=== PATIENT | female | born 1950 | race Caucasian/White ===

== ENCOUNTER → 2017-08-24 07:10 | Outpatient (CLI) | payer OTHER, SELFPAY ==
--- NOTE | 2017-08-24 | DI.MRI.S_ITS ---
PROCEDURE: MR KNEE LT WO CON INDICATIONS: INTERNAL DERANGEMENT OF LEFT KNEE TECHNIQUE: Noncontrast sagittal PD fast spin echo and T2 fast spin echo with fat saturation, sagittal 3-D FLASH with fat saturation; coronal T1 spin echo and PD fast spin echo with fat saturation, and axial PD fast spin echo with fat saturation through the knee. COMPARISON: [facility], , KNEE 3V LEFT, 04/13/2017, 12:09. FINDINGS: Image quality: Excellent. Menisci: There is radial tear in the posterior horn of the medial meniscus. Horizontal tear involving the body and posterior horn, as well as fraying of the free edge of the medial meniscus. The lateral meniscus appears normal morphology and internal signal. The meniscal root ligaments appear intact. Cruciate ligaments: There is likely chronic partial tear/scarring of the anterior cruciate ligament which is thickened and demonstrates increased signal. The posterior cruciate ligament appear intact. Medial structures: There is a grade 3 sprain of the medial collateral ligament Visualized portions of the pes anserinus tendons appear normal. Trace pes anserinus bursal fluid. Lateral structures: The lateral collateral ligament, long and short heads of the biceps femoris tendon appear intact. The popliteus tendon appears normal; the popliteofibular ligament appears intact. The posterosuperior and anteroinferior popliteomeniscal fascicles appear intact. The arcuate and fabellofibular ligaments appear intact, on either side of the lateral inferior geniculate artery. Iliotibial band appears normal. Anterior structures: The quadriceps and patellar tendons appear intact. Patellar alignment is normal. No femoral trochlear dysplasia or ventral trochlear prominence. No edema in the infrapatellar fat pad. Bones and cartilage: No fractures. There is bone marrow edema in the medial femoral condyle consistent with contusion. There is cortical irregularity and subochondral edema with associated subchondral sclerosis in the medial femoral condyle, suggesting sequelae of chronic injury. There is cartilage thinning and fibrillation of the medial and lateral femorotibial compartments. Joint space: There is large knee joint effusion. Small Garcia's cyst. Normal appearing synovial plicae are incidentally noted. IMPRESSION: 1. A radial tear of the posterior horn medial meniscus. 2. Horizontal tear of the body and posterior horn with associated fraying of the free edge of the medial meniscus. 3. Suspect chronic partial tear/scar of the anterior cruciate ligament. 4. Great 3 sprain of the medial collateral ligament. 5. Large knee joint effusion. 6. Trace pes anserinus bursal fluid suggesting mild bursitis. 7. Small Garcia's cyst. 8. Cartilage thinning and fibrillation in the medial femorotibial compartment. There is cortical irregularity and subochondral edema with associated subchondral sclerosis in the medial femoral condyle, suggesting sequelae of chronic injury. Dictated by: Yared Cohen M.D. on 08/24/2017 at 8:57 Approved by: Yared Cohen M.D. on 08/24/2017 at 10:49
== END ==
PROVIDERS: Family Provider Physician Assistant; PCP Physician Assistant; Visit Provider Orthopaedic Surgery
DX: S83.242A Other tear of medial meniscus, current injury, left knee, initial encounter (principal); M71.22 Synovial cyst of popliteal space [Baker], left knee; M70.52 Other bursitis of knee, left knee; M25.462 Effusion, left knee; S83.412A Sprain of medial collateral ligament of left knee, initial encounter
CPT/HCPCS: 73721

== ENCOUNTER → 2017-09-08 09:22 | Outpatient (CLI) | payer OTHER, SELFPAY | PROVIDERS: Family Provider Physician Assistant; PCP Physician Assistant; Visit Provider Physician Assistant | DX: M85.852 Other specified disorders of bone density and structure, left thigh (principal); E28.39 Other primary ovarian failure; Z78.0 Asymptomatic menopausal state; Z87.891 Personal history of nicotine dependence | CPT/HCPCS: 77080 ==

== ENCOUNTER → 2017-12-07 11:27 | Outpatient (CLI) | payer OTHER, SELFPAY ==
--- NOTE | 2017-12-07 | DI.MG.S_ITS ---
BILATERAL DIGITAL SCREENING MAMMOGRAM 3D/2D WITH CAD: 12/07/2017 CLINICAL: Routine screening. Comparison is made to exams dated: 11/18/2016 mammogram, 09/24/2015 mammogram, and 08/19/2014 mammogram - [facility]. There are scattered fibroglandular elements in both breasts. Current study was also evaluated with a Computer Aided Detection (CAD) system. There are post operative findings in both breasts. No significant masses, calcifications, or other findings are seen in either breast. There has been no significant interval change. IMPRESSION: NEGATIVE There is no mammographic evidence of malignancy. A 1 year screening mammogram is recommended. This exam was interpreted at Station ID: [id number]. NOTE: For mammograms, a report in lay terms will be sent to the patient. Approximately 15% of breast malignancies will not be visualized mammographically. In the management of a palpable breast mass, a negative mammogram must not discourage biopsy of a clinically suspicious lesion. Electronically Signed By: Allen grewal/kan:12/07/2017 12:00:33 letter sent: Normal Exam ACR BI-RADS Category 1: Negative 3341F
== END ==
PROVIDERS: Family Provider Physician Assistant; PCP Physician Assistant; Visit Provider Physician Assistant
DX: Z12.31 Encounter for screening mammogram for malignant neoplasm of breast (principal)
CPT/HCPCS: 77063; 77067

== ENCOUNTER → 2018-07-17 07:49 | Outpatient (CLI) | payer OTHER, SELFPAY ==
[2018-07-17 10:07] LABS: Alanine Aminotransferase 45 IU/L (9-52); Albumin 4.8 g/dL (3.5-5.0); Albumin Globulin Ratio 1.5 (1.0-2.8); Alkaline Phosphatase 84 U/L (38-126); Aspartate Aminotransferase 40 IU/L (14-36); BUN Creatinine Ratio 22.9 (6-22); Bilirubin Total 0.7 mg/dL (0.2-1.3); Blood Urea Nitrogen 16 mg/dL (7-17); Calcium 9.8 mg/dL (8.4-10.2); Carbon Dioxide 26 mmol/L (22-32); Chloride 100 mmol/L (98-107); Estimated Glomerular Filt Rate > 60.0 mL/min (>60); Globulin 3.3 g/dL (1.7-4.1); Glucose 116 mg/dL (80-110); HEMOLYSIS < 15 (0-50); Sodium 137 mmol/L (137-145); Total Protein 8.1 g/dL (6.3-8.2)
[2018-07-17 10:56] LABS: Thyroid Stimulating Hormone 1.45 uIU/mL (0.47-4.68)
[2018-07-17 13:36] LABS: Creatinine Urine Random 81.9 mg/dL
[2018-07-17 13:56] LABS: Microalbumi Creatinin Ratio Ur 7.3 ug/mg CR (<30); Microalbumin Urine Random < 0.6 mg/dL (0-1.6)
== END ==
PROVIDERS: Family Provider Physician Assistant; PCP Physician Assistant; Visit Provider Physician Assistant
DX: I10 Essential (primary) hypertension (principal); R00.0 Tachycardia, unspecified; R00.2 Palpitations
CPT/HCPCS: 36415; 80053; 82043; 82570; 84443

== ENCOUNTER → 2018-07-26 09:11 | Outpatient (CLI) | payer OTHER, SELFPAY ==
--- NOTE | 2018-08-17 16:14 | PM.CARDMON.1 ---
Operations Executive Report Referral & Results Date Patient Seen: 07/26/18 Requesting provider: Brooke Orantes Indication: Palpitations Duration of monitoring (days): 14 Diary information: There is 7 patient diary entries associated with sinus rhythm and PVCs There are 17 patient triggered events associated with sinus rhythm, SVT/atrial tachycardia, ventricular trigeminy, PVCs, and PACs Data: Minimum heart rate was 45 beats per minute at 05:52 on 07/28/2018 Maximum sinus heart rate was 121 beats per minute at 11:20 on 07/31/2018 Maximum overall heart rate was 226 beats per minute at 09:17 on 07/30/2018 during a 14 beat run of SVT Less than 1% of identified beats rather ventricular supraventricular in origin Patient had a 2nd run of ventricular bigeminy and a 12nd run of ventricular trigeminy 39 runs of supraventricular tachycardia/atrial tachycardia were identified with an average heart rate of 127 beats per minute the longest lasted 15.1 seconds Impression: Patient with multiple minor dysrhythmias as above. Difficult to correlate patient's symptoms as multiple different things were present within 45 seconds of patient triggering the device. More likely than not patient's symptoms are due to PVCs given that the seem to be correlated with her diary entries Clinical correlation suggested however.
== END ==
PROVIDERS: Family Provider Physician Assistant; PCP Physician Assistant; Visit Provider Physician Assistant
DX: R00.2 Palpitations (principal)
CPT/HCPCS: 0296T; 0298T

== ENCOUNTER → 2018-12-11 09:23 | Outpatient (CLI) | payer OTHER, SELFPAY ==
--- NOTE | 2018-12-11 | DI.MG.S_ITS ---
BILATERAL DIGITAL SCREENING MAMMOGRAM 3D/2D WITH CAD: 12/11/2018 CLINICAL: Routine screening. Comparison is made to exams dated: 12/07/2017 mammogram, 11/18/2016 mammogram, and 09/24/2015 mammogram - [facility]. There are scattered fibroglandular elements in both breasts. Current study was also evaluated with a Computer Aided Detection (CAD) system. There are benign post operative findings in both breasts. No significant masses, calcifications, or other findings are seen in either breast. There has been no significant interval change. IMPRESSION: There is no mammographic evidence of malignancy. A 1 year screening mammogram is recommended. This exam was interpreted at Station ID: [id number]. NOTE: For mammograms, a report in lay terms will be sent to the patient. Approximately 15% of breast malignancies will not be visualized mammographically. In the management of a palpable breast mass, a negative mammogram must not discourage biopsy of a clinically suspicious lesion. Electronically Signed By: Bola orourke/kan:12/11/2018 15:27:12 letter sent: Normal Exam ACR BI-RADS Category 2: Benign Finding(s) 3342F
== END ==
PROVIDERS: PCP Physician Assistant; Visit Provider Physician Assistant
DX: Z12.31 Encounter for screening mammogram for malignant neoplasm of breast (principal)
CPT/HCPCS: 77063; 77067

== ENCOUNTER → 2019-12-13 11:45 | Outpatient (CLI) | payer OTHER, SELFPAY ==
--- NOTE | 2019-12-13 11:59 | DI.MG.S_ITS ---
Patient Name: ABHAY ELIZABETH date: 1950 Sex: F Attending Physician: Bertin Indications: Date: 12/13/2019 11:56 At the request of: DENIS DESIR Procedure: MM screening mammo BI BILATERAL DIGITAL SCREENING MAMMOGRAM 3D/2D WITH CAD: 12/13/2019 CLINICAL: Routine screening. Comparison is made to exams dated: 12/11/2018 mammogram, 12/07/2017 mammogram, and 11/18/2016 mammogram - [facility]. The tissue of both breasts is predominantly fatty. Current study was also evaluated with a Computer Aided Detection (CAD) system. No significant masses, calcifications, or other findings are seen in either breast. There has been no significant interval change. IMPRESSION: NEGATIVE There is no mammographic evidence of malignancy. A 1 year screening mammogram is recommended. This exam was interpreted at Station ID: [id number]. NOTE: For mammograms, a report in lay terms will be sent to the patient. Approximately 15% of breast malignancies will not be visualized mammographically. In the management of a palpable breast mass, a negative mammogram must not discourage biopsy of a clinically suspicious lesion. Electronically Signed By: Drake mancini/kan:12/13/2019 12:47:01 letter sent: Normal Exam ACR BI-RADS Category 1: Negative 3341F
== END ==
PROVIDERS: PCP Nurse Practitioner; Referring Provider Nurse Practitioner; Visit Provider Nurse Practitioner
DX: Z12.31 Encounter for screening mammogram for malignant neoplasm of breast (principal)
CPT/HCPCS: 77063; 77067

== ENCOUNTER → 2020-01-13 07:09 | Outpatient (CLI) | payer OTHER, SELFPAY ==
[2020-01-13 08:29] LABS: BUN Creatinine Ratio 28.4 (6-22); Blood Urea Nitrogen 19 mg/dL (7-17); Calcium 9.5 mg/dL (8.4-10.2); Carbon Dioxide 29 mmol/L (22-32); Chloride 99 mmol/L (98-107); Cholesterol 173 mg/dL (140-199); Estimated Glomerular Filt Rate > 60.0 mL/min (>60); Glucose 127 mg/dL (80-110); HDL Cholesterol 43 mg/dL (40-60); HEMOLYSIS < 15 (0-50); LDL Cholesterol Calculated 104 mg/dL (<100); Potassium 4.1 mmol/L (3.4-5.1); Sodium 138 mmol/L (137-145); Triglycerides 131 mg/dL (35-150)
[2020-01-13 08:45] LABS: Free T3, Triiodothyronine Free 3.09 pg/mL (2.77-5.27); Free T4, Direct Thyroxine 1.11 ng/dL (0.78-2.19)
[2020-01-13 08:58] LABS: Thyroid Stimulating Hormone 2.29 uIU/mL (0.47-4.68)
[2020-01-13 10:25] LABS: Creatinine Urine Random 142.1 mg/dL
[2020-01-13 10:29] LABS: Microalbumi Creatinin Ratio Ur 9.1 ug/mg CR (<30); Microalbumin Urine Random 1.3 mg/dL (0-1.6)
== END ==
PROVIDERS: PCP Nurse Practitioner; Referring Provider Nurse Practitioner; Visit Provider Nurse Practitioner
DX: E66.9 Obesity, unspecified (principal); E78.5 Hyperlipidemia, unspecified; I10 Essential (primary) hypertension; R00.2 Palpitations; Z79.899 Other long term (current) drug therapy
CPT/HCPCS: 36415; 80048; 80061; 82043; 82570; 84439; 84443; 84481

== ENCOUNTER → 2020-01-14 13:28 | Outpatient (CLI) | payer OTHER, SELFPAY | PROVIDERS: PCP Nurse Practitioner; Referring Provider Nurse Practitioner; Visit Provider Nurse Practitioner | DX: M85.851 Other specified disorders of bone density and structure, right thigh (principal); Z78.0 Asymptomatic menopausal state; Z87.891 Personal history of nicotine dependence | CPT/HCPCS: 77080 ==

== ENCOUNTER → 2020-04-30 13:09 | Outpatient (CLI) | payer MEDICARE, SELFPAY ==
[2020-04-30] MEDS: COVID-19 VACC #1, MRNA(MOD) 100 MCG/0.5 ML VIAL IM (13:14)
== END ==
PROVIDERS: PCP Nurse Practitioner; Visit Provider Internal Medicine
DX: Z23 Encounter for immunization (principal)
CPT/HCPCS: 0011A; 91301

== ENCOUNTER → 2020-05-28 12:54 | Outpatient (CLI) | payer MEDICARE, SELFPAY ==
[2020-05-28] MEDS: COVID-19 VACC #2, MRNA(MOD) 100 MCG/0.5 ML VIAL IM (13:05)
== END ==
PROVIDERS: PCP Nurse Practitioner; Visit Provider Internal Medicine
DX: Z23 Encounter for immunization (principal)
CPT/HCPCS: 0012A; 91301

== ENCOUNTER 2020-09-21 13:10 | Outpatient (RCR) | payer OTHER, SELFPAY ==
--- NOTE | 2020-09-21 15:20 | PT.OIE ---
Current Diagnoses Pain in left knee (09/21/20) Dyspnea, unspecified (09/21/20) Past Medical History (Last Updated 09/09/20 @ 11:50 by SHANE Luis) Arthritis (Unknown) Elevated fasting glucose Hyperlipidemia Hypertension (Unknown) Osteopenia (~2014) Past Surgical History (Last Reviewed 09/09/20 @ 11:41 by SHANE Luis) Hx of bilateral breast reduction surgery (12/2015) Visit Care Team Role Provider Type SHANE Luis Attending Provider Advanced Deckhand [employer] Primary Care Provider Referring Provider Specialty: Family Practice Address: [address] [place] [address], [facility] Email: [email or web address] Physical Therapy Initial Evaluation PT-OP-A Visit Information Start: 09/21/20 14:43 Freq: Status: Active Protocol: Document 09/21/20 13:45 DCW (Rec: 09/21/20 15:20 DCW [id number]) Out-Patient Physical Therapy Visit Information Visit Information Visit Type Initial Evaluation Visit Start Time 13:45 Visit Stop Time 14:25 Total Visit Minutes 40 Visit Number 0 Number of SPAGHETTI PRESS HELPER Visits 1 Evaluation Information Evaluation Date 09/21/20 PT-OP-B Current Condition Start: 09/21/20 14:43 Freq: Status: Active Protocol: Document 09/21/20 13:45 DCW (Rec: 09/21/20 15:20 DCW [id number]) Current Condition History of Current Condition Onset Date 2+ years Current Complaints Knee pain with activity History of Current Condition Pt is a 70 year old female ~ two years s/p surgical left meniscus repair. Pt reports that following the surgery, she was told they found a lot of arthritis, and she has had fairly constant pain ever since then. Pt reports she has had some increased weight gain, and has been trying to work on getting rid of it, however her knee pain limits her activity level. Notes she is able to participate in [employer] classes 3x/ week, but wants to get out and walk more, which is a difficult activity for her. Pt is able to tolerate walking around large stores like [employer] or [employer], but any more than that, and she has to stop due to the pain. Pt is also concerned about her $40 copay, and would prefer to just attend 2-3 more sessions, and then transition to an independent home exercise program. Treatment Goals Patient/Caregiver Goals Pt's goal is to strengthen her knee to decrease pain. PT-OP-C Subjective Start: 09/21/20 14:43 Freq: Status: Active Protocol: Document 09/21/20 13:45 DCW (Rec: 09/21/20 15:20 DCW [id number]) OP-PT Subjective Patient Comments Patient Comments I want to walk to lose weight , which would help my knee feel better, but my knee hurts , so I can't get out and walk. Patient Questionnaires Lower Extremity Functional Scale LEFS Score 21.25% LEFS Impairment 60 to 79% Impaired (Score 17- 31) OP-PT Pain Assessment Pain Assessment Grid Paper Pain Assessment Grid Completed Yes Location Left Medial Knee Intensity 6 Scale Used Numeric (0 - 10) Description Aching Description- Other Catching PT-OP-E Functional Tests Start: 09/21/20 14:43 Freq: Status: Active Protocol: Document 09/21/20 13:45 DCW (Rec: 09/21/20 15:20 DCW [id number]) Functional Tests 6 Minute Walk Test Distance 1199' Device Used none Comments 3.33 ft/sec 30 Second Sit to Stand Test Score x11 PT-OP-F Manual Assessment Start: 09/21/20 14:43 Freq: Status: Active Protocol: Document 09/21/20 13:45 DCW (Rec: 09/21/20 15:20 DCW [id number]) Manual Assessments Soft Tissue Assessment Soft Tissue Mobility Assessment Mild complaint of pain with palpation along medial left knee. PT-OP-K Range of Motion Start: 09/21/20 14:43 Freq: Status: Active Protocol: Document 09/21/20 13:45 DCW (Rec: 09/21/20 15:20 DCW [id number]) Knee Goniometric Range of Motion Knee Right Knee ROM WFL Yes Patient Position Supine Flexion Active (degrees) 120 Extension Active (degrees) 0 Left Knee ROM WFL Yes Patient Position Supine Flexion Active (degrees) 118 Extension Active (degrees) 0 PT-OP-M Strength Start: 09/21/20 14:43 Freq: Status: Active Protocol: Document 09/21/20 13:45 DCW (Rec: 09/21/20 15:20 DCW [id number]) Hip Strength Hip Manual Muscle Testing Right Flexion (L2) 4+ Good+ Abduction 4+ Good+ Adduction 4 Good External Rotation 4+ Good+ Internal Rotation 4+ Good+ Left Flexion (L2) 4 Good Abduction 4+ Good+ Adduction 4 Good External Rotation 4+ Good+ Internal Rotation 4+ Good+ Knee Strength Knee Manual Muscle Testing Right Flexion (S2) 4+ Good+ Extension (L3) 4+ Good+ Left Flexion (S2) 4 Good Extension (L3) 4 Good PT-OP-T Assessment and Plan Start: 09/21/20 14:43 Freq: Status: Active Protocol: Document 09/21/20 13:45 DCW (Rec: 09/21/20 15:20 DCW [id number]) Physical Therapy Assessment Rehab Potential Rehabilitation Potential Good Evaluation Complexity Number of Personal Factors/Comorbidities 0 Number of Body Systems Impaired 1-2 Clinical Presentation at Evaluation Stable Impairments Impairments Activity Tolerance,Functional Activities,Pain,Strength Goals Two Impairment Pt scores 11 on the 30 second sit to stand test Short Term Goal (STG) Per Jose and Jack (2013), females in the 70-74 age group should score at least 14 on 30 second sit to stand test to show ability to maintain physical independence. Pt should demonstrate ability to to score at least 14 during testing. STG Duration 10/21/20 One Impairment Pt does not have an appropriate home exercise program Short Term Goal (STG) Pt to be independent and compliant with an appropriate HEP STG Duration 10/21/20 Assessment Summary Assessment Pt presents to skilled therapy with signs and symptoms consistent with left knee osteoarthritis, medial>lateral . Pt does show strength and ROM largely WNL, although does have some minor weakness (4/5 ) with flexion and extension of left knee. Pt will require instruction in an independent home exercise program in order to improve mobility and increase tolerance to activity . Pt concerned with her copay, and would prefer to only attend 2-3 sessions in order to obtain HEP and then progress to independence. Physical Therapy Plan Frequency and Duration Frequency of Treatment 1-2x/week Duration of Treatment One month Plan of Care Start Date 09/21/20 Plan of Care End Date 10/21/20 Therapeutic Interventions Therapeutic Interventions Balance Training,Home Exercise Program,Joint Mobilizations, Manual Therapy,Neuromuscular Re-education,Patient/Caregiver Education,Self-Care/Home Management,Therapeutic Activities,Therapeutic Exercises Next Visit Focus/Plan Next Note Type Treatment Note Next Visit Plan Strengthening, mobility HEP
--- NOTE | 2020-09-21 15:20 | PT.OPPOC ---
Physical, Occupational & Speech Therapy At [facility] Current Diagnoses Pain in left knee (09/21/20) Dyspnea, unspecified (09/21/20) Visit Care Team Role Provider Type SHANE Luis Attending Provider Advanced Erp Engineer Primary Care Provider Referring Provider Specialty: Family Practice Address: [address] [place] [address], [facility] Email: [email or web address] Plan Of Care PT-OP-T Assessment and Plan Start: 09/21/20 14:43 Freq: Status: Active Protocol: Document 09/21/20 13:45 DCW (Rec: 09/21/20 15:20 DCW [id number]) Physical Therapy Assessment Rehab Potential Rehabilitation Potential Good Evaluation Complexity Number of Personal Factors/Comorbidities 0 Number of Body Systems Impaired 1-2 Clinical Presentation at Evaluation Stable Impairments Impairments Activity Tolerance,Functional Activities,Pain,Strength Goals Two Impairment Pt scores 11 on the 30 second sit to stand test Short Term Goal (STG) Per Jose and Jack (2013), females in the 70-74 age group should score at least 14 on 30 second sit to stand test to show ability to maintain physical independence. Pt should demonstrate ability to to score at least 14 during testing. STG Duration 10/21/20 One Impairment Pt does not have an appropriate home exercise program Short Term Goal (STG) Pt to be independent and compliant with an appropriate HEP STG Duration 10/21/20 Assessment Summary Assessment Pt presents to skilled therapy with signs and symptoms consistent with left knee osteoarthritis, medial>lateral . Pt does show strength and ROM largely WNL, although does have some minor weakness (4/5 ) with flexion and extension of left knee. Pt will require instruction in an independent home exercise program in order to improve mobility and increase tolerance to activity . Pt concerned with her copay, and would prefer to only attend 2-3 sessions in order to obtain HEP and then progress to independence. Physical Therapy Plan Frequency and Duration Frequency of Treatment 1-2x/week Duration of Treatment One month Plan of Care Start Date 09/21/20 Plan of Care End Date 10/21/20 Therapeutic Interventions Therapeutic Interventions Balance Training,Home Exercise Program,Joint Mobilizations, Manual Therapy,Neuromuscular Re-education,Patient/Caregiver Education,Self-Care/Home Management,Therapeutic Activities,Therapeutic Exercises Next Visit Focus/Plan Next Note Type Treatment Note Next Visit Plan Strengthening, mobility HEP Plan of Care Dates Plan of Care Start Date 09/21/20 Plan of Care End Date 10/21/20 Electronically Signed by: Sam Maki, PT 09/21/20 [id number] Please Sign and Return: I have reviewed this Plan of Care and certify that the skilled therapy services above are required to meet the patient?s needs. Physician Signature Date Printed Name and Credentials Clinical Instructor Signature Printed Name and Credentials
--- NOTE | 2020-11-05 13:48 | PT.OPDS ---
Current Diagnoses Pain in left knee (09/21/20) Dyspnea, unspecified (09/21/20) Visit Care Team Role Provider Type SHANE Luis Attending Provider Advanced Business Dean Primary Care Provider Referring Provider Specialty: [facility] Practice Address: [address] [place] [address], [facility] Email: [email or web address] Visit Number Visit Number 1 Discharge Summary PT-OP-B Current Condition Start: 09/21/20 14:43 Freq: Status: Active Protocol: Document 09/21/20 13:45 DCW (Rec: 09/21/20 15:20 DCW [id number]) Current Condition History of Current Condition Onset Date 2+ years Current Complaints Knee pain with activity History of Current Condition Pt is a 70 year old female ~ two years s/p surgical left meniscus repair. Pt reports that following the surgery, she was told they found a lot of arthritis, and she has had fairly constant pain ever since then. Pt reports she has had some increased weight gain, and has been trying to work on getting rid of it, however her knee pain limits her activity level. Notes she is able to participate in [employer] classes 3x/ week, but wants to get out and walk more, which is a difficult activity for her. Pt is able to tolerate walking around large stores like [employer] or [employer], but any more than that, and she has to stop due to the pain. Pt is also concerned about her $40 copay, and would prefer to just attend 2-3 more sessions, and then transition to an independent home exercise program. Treatment Goals Patient/Caregiver Goals Pt's goal is to strengthen her knee to decrease pain. PT-OP-C Subjective Start: 09/21/20 14:43 Freq: Status: Active Protocol: Document 09/21/20 13:45 DCW (Rec: 09/21/20 15:20 DCW [id number]) OP-PT Subjective Patient Comments Patient Comments I want to walk to lose weight , which would help my knee feel better, but my knee hurts , so I can't get out and walk. Patient Questionnaires Lower Extremity Functional Scale LEFS Score 21.25% LEFS Impairment 60 to 79% Impaired (Score 17- 31) OP-PT Pain Assessment Pain Assessment Grid Paper Pain Assessment Grid Completed Yes Location Left Medial Knee Intensity 6 Scale Used Numeric (0 - 10) Description Aching Description- Other Catching PT-OP-E Functional Tests Start: 09/21/20 14:43 Freq: Status: Active Protocol: Document 09/21/20 13:45 DCW (Rec: 09/21/20 15:20 DCW [id number]) Functional Tests 6 Minute Walk Test Distance 1199' Device Used none Comments 3.33 ft/sec 30 Second Sit to Stand Test Score x11 PT-OP-F Manual Assessment Start: 09/21/20 14:43 Freq: Status: Active Protocol: Document 09/21/20 13:45 DCW (Rec: 09/21/20 15:20 DCW [id number]) Manual Assessments Soft Tissue Assessment Soft Tissue Mobility Assessment Mild complaint of pain with palpation along medial left knee. PT-OP-K Range of Motion Start: 09/21/20 14:43 Freq: Status: Active Protocol: Document 09/21/20 13:45 DCW (Rec: 09/21/20 15:20 DCW [id number]) Knee Goniometric Range of Motion Knee Right Knee ROM WFL Yes Patient Position Supine Flexion Active (degrees) 120 Extension Active (degrees) 0 Left Knee ROM WFL Yes Patient Position Supine Flexion Active (degrees) 118 Extension Active (degrees) 0 PT-OP-M Strength Start: 09/21/20 14:43 Freq: Status: Active Protocol: Document 09/21/20 13:45 DCW (Rec: 09/21/20 15:20 DCW [id number]) Hip Strength Hip Manual Muscle Testing Right Flexion (L2) 4+ Good+ Abduction 4+ Good+ Adduction 4 Good External Rotation 4+ Good+ Internal Rotation 4+ Good+ Left Flexion (L2) 4 Good Abduction 4+ Good+ Adduction 4 Good External Rotation 4+ Good+ Internal Rotation 4+ Good+ Knee Strength Knee Manual Muscle Testing Right Flexion (S2) 4+ Good+ Extension (L3) 4+ Good+ Left Flexion (S2) 4 Good Extension (L3) 4 Good PT-OP-T Assessment and Plan Start: 09/21/20 14:43 Freq: Status: Active Protocol: Document 11/05/20 13:47 DCW (Rec: 11/05/20 13:48 DCW [id number]) Physical Therapy Assessment Assessment Summary Assessment Pt canceled or no-showed for four appointments following her initial evaluation. Pt has now not been seen in 45 days, will be discharged from skilled therapy at this time. Pt will require a new referral in order to return to therapy . Physical Therapy Plan Discharge Physical Therapy Discharge Reasons No Longer Attending PT Next Visit Focus/Plan Next Note Type Discharge Summary
== END 2020-11-09 09:25 | disposition home or self-care (01) ==
LOC: PHYS 13:10
PROVIDERS: PCP Nurse Practitioner; Referring Provider Nurse Practitioner; Visit Provider Nurse Practitioner
DX: M25.562 Pain in left knee (principal); R06.00 Dyspnea, unspecified
CPT/HCPCS: 97161

== ENCOUNTER → 2020-12-19 10:41 | Outpatient (CLI) | payer OTHER, SELFPAY ==
--- NOTE | 2020-12-19 10:43 | DI.MG.S_ITS ---
BILATERAL DIGITAL SCREENING MAMMOGRAM 3D/2D WITH CAD: 12/19/2020 CLINICAL: Routine screening. Comparison is made to exams dated: 12/13/2019 mammogram, 12/11/2018 mammogram, and 12/07/2017 mammogram - [facility]. The tissue of both breasts is predominantly fatty. Current study was also evaluated with a Computer Aided Detection (CAD) system. No significant masses, calcifications, or other findings are seen in either breast. There has been no significant interval change. IMPRESSION: NEGATIVE There is no mammographic evidence of malignancy. A 1 year screening mammogram is recommended. This exam was interpreted at Station ID: [id number]. NOTE: For mammograms, a report in lay terms will be sent to the patient. Approximately 15% of breast malignancies will not be visualized mammographically. In the management of a palpable breast mass, a negative mammogram must not discourage biopsy of a clinically suspicious lesion. Electronically Signed By: Nadeem Koo acr/kan:12/21/2020 08:03:09 letter sent: Normal Exam ACR BI-RADS Category 1: Negative 3341F
== END ==
PROVIDERS: PCP Nurse Practitioner; Referring Provider Nurse Practitioner; Visit Provider Nurse Practitioner
DX: Z12.31 Encounter for screening mammogram for malignant neoplasm of breast (principal)
CPT/HCPCS: 77063; 77067

== ENCOUNTER → 2020-12-25 08:26 | Outpatient (CLI) | payer OTHER, SELFPAY ==
--- NOTE | 2020-12-25 08:27 | DI.RAD.S_ITS ---
PROCEDURE: XR FOOT LT MIN 3V INDICATIONS: L lateral foot pain post tripping on cat TECHNIQUE: 3 views of the foot were acquired. COMPARISON: None. FINDINGS: Bones: Oblique shaft fracture of the shaft of the 5th metatarsal with very minimal displacement. No involvement of the articular surface. No suspicious bony lesions. Soft tissues: No tibiotalar joint effusion. Achilles tendon appears normal. IMPRESSION: Oblique shaft fracture of the 5th metatarsal. Dictated by: Toney Brand M.D. on 12/25/2020 at 9:24 Approved by: Toney Brand M.D. on 12/25/2020 at 9:25
--- NOTE | 2020-12-25 08:27 | DI.RAD.S_ITS ---
PROCEDURE: XR ANKLE LT MIN 3V INDICATIONS: L lateral malleolar pain TECHNIQUE: 3 views of the ankle were acquired. COMPARISON: None. FINDINGS: Bones: No fractures or dislocations. Ankle mortise is normally aligned. No suspicious bony lesions. Soft tissues: No tibiotalar joint effusion. Achilles tendon appears normal. IMPRESSION: No evidence acute bony abnormality of the left ankle. If clinical suspicion and/or symptoms persist, further assessment with repeat plain films, or advanced imaging (e.g., CT, MRI, or bone scan) may be helpful for further assessment. Dictated by: Toney Brand M.D. on 12/25/2020 at 9:21 Approved by: Toney Brand M.D. on 12/25/2020 at 9:23
== END ==
PROVIDERS: PCP Nurse Practitioner; Referring Provider Nurse Practitioner; Visit Provider Nurse Practitioner
DX: S92.352A Displaced fracture of fifth metatarsal bone, left foot, initial encounter for closed fracture (principal)
CPT/HCPCS: 73610; 73630

== ENCOUNTER → 2021-01-25 06:46 | Outpatient (CLI) | payer OTHER, SELFPAY ==
[2021-01-25 08:35] LABS: Hemoglobin A1C% w Est Avg Glu 6.4 % (4.0-6.0)
[2021-01-25 08:37] LABS: Alanine Aminotransferase 37 IU/L (<35); Albumin 4.5 g/dL (3.5-5.0); Albumin Globulin Ratio 1.5 (1.0-2.8); Alkaline Phosphatase 72 U/L (38-126); Aspartate Aminotransferase 43 IU/L (14-36); BUN Creatinine Ratio 26.6 (6-22); Bilirubin Total 0.7 mg/dL (0.2-1.3); Blood Urea Nitrogen 17 mg/dL (7-17); Calcium 9.6 mg/dL (8.4-10.2); Carbon Dioxide 25 mmol/L (22-32); Chloride 101 mmol/L (98-107); Estimated Glomerular Filt Rate > 60.0 mL/min (>60); Glucose 128 mg/dL (80-110); HEMOLYSIS < 15 (0-50); Potassium 4.2 mmol/L (3.4-5.1); Sodium 138 mmol/L (137-145); Total Protein 7.5 g/dL (6.3-8.2)
[2021-01-25 09:07] LABS: Free T3, Triiodothyronine Free 4.35 pg/mL (2.77-5.27)
[2021-01-25 09:20] LABS: Thyroid Stimulating Hormone 2.33 uIU/mL (0.47-4.68)
== END ==
PROVIDERS: PCP Nurse Practitioner; Referring Provider Nurse Practitioner; Visit Provider Nurse Practitioner
DX: R73.01 Impaired fasting glucose (principal); I10 Essential (primary) hypertension; R00.2 Palpitations; Z79.899 Other long term (current) drug therapy
CPT/HCPCS: 36415; 80053; 83036; 83735; 84439; 84443; 84481

== ENCOUNTER → 2021-05-27 10:56 | Outpatient (CLI) | payer OTHER, SELFPAY | PROVIDERS: PCP Nurse Practitioner; Visit Provider Nurse Practitioner | DX: B02.9 Zoster without complications (principal); L98.9 Disorder of the skin and subcutaneous tissue, unspecified | CPT/HCPCS: 87070; 87077; 87147; 87185; 87186; 87205; 87252 ==

== ENCOUNTER → 2021-10-19 12:02 | Outpatient (CLI) | payer OTHER, SELFPAY | PROVIDERS: PCP Nurse Practitioner; Visit Provider Nurse Practitioner | DX: L98.9 Disorder of the skin and subcutaneous tissue, unspecified (principal) | CPT/HCPCS: 87070; 87075; 87205 ==

== ENCOUNTER → 2021-10-19 12:06 | Outpatient (CLI) | payer OTHER, SELFPAY ==
[2021-10-19 13:19] LABS: Alanine Aminotransferase 27 IU/L (<35); Albumin 4.6 g/dL (3.5-5.0); Albumin Globulin Ratio 1.6 (1.0-2.8); Alkaline Phosphatase 78 U/L (38-126); Aspartate Aminotransferase 35 IU/L (14-36); BUN Creatinine Ratio 27.1 (6-22); Bilirubin Total 0.5 mg/dL (0.2-1.3); Blood Urea Nitrogen 23 mg/dL (7-17); Calcium 9.6 mg/dL (8.4-10.2); Carbon Dioxide 24 mmol/L (22-32); Chloride 103 mmol/L (98-107); Estimated Glomerular Filt Rate > 60 mL/min (>60); Globulin 2.9 g/dL (1.7-4.1); Glucose 115 mg/dL (80-110); HEMOLYSIS < 15 (0-50); Magnesium 2.2 mg/dL (1.6-2.3); Potassium 4.7 mmol/L (3.4-5.1); Sodium 136 mmol/L (137-145); Total Protein 7.5 g/dL (6.3-8.2)
[2021-10-19 13:32] LABS: NT-proBNP (BNP-Adult 18+) 268 pg/mL (<125)
== END ==
PROVIDERS: PCP Nurse Practitioner; Referring Provider Nurse Practitioner; Visit Provider Nurse Practitioner
DX: R06.02 Shortness of breath (principal); I49.3 Ventricular premature depolarization; L98.9 Disorder of the skin and subcutaneous tissue, unspecified
CPT/HCPCS: 36415; 80053; 83735; 83880; 87070; 87075; 87077; 87185; 87186; 87205

== ENCOUNTER → 2021-11-03 08:01 | Outpatient (CLI) | payer OTHER, SELFPAY ==
--- NOTE | 2021-11-03 08:02 | DI.US.S_ITS ---
PROCEDURE: US PELVIC COMPLETE INDICATIONS: Pelvic pressure/pain in menopausal female TECHNIQUE: Real-time scanning was performed of the pelvic organs, with image documentation. Additional endovaginal scanning was necessary due to incomplete visualization of the adnexal and endometrial structures by transabdominal scanning. COMPARISON: None. FINDINGS: Uterus: The uterus is anteverted measuring 6.4 x 4.4 x 2.3 centimeters. The endometrium is hard to visualize and is heterogeneous, possibly measuring up to 10 millimeters in thickness. There are nabothian cysts. Ovaries: Ovaries are likely atrophic and obscured by bowel gas. Other: No pathologic free abdominal or pelvic fluid. IMPRESSION: Heterogeneous, difficult to visualize endometrium, possibly measuring to 10 millimeters. If there is a history of postmenopausal bleeding, sampling would be recommended. Ovaries are likely atrophic and not well seen. We strive to produce accurate, complete, and clear reports of imaging services. To assist us in improving patient care, this report was composed using standard report templates and voice recognition software. Therefore, it may contain abnormal punctuation, insertions and/or omissions. Occasional wrong-word or sound-alike substitutions may occur. Though we review the report and make efforts to correct it, we do recommend that the report be read carefully in proper context to recognize any text inaccuracies. Dictated by: López Magdaleno M.D. on 11/03/2021 at 10:24 Approved by: López Magdaleno M.D. on 11/03/2021 at 10:27
== END ==
PROVIDERS: PCP Nurse Practitioner; Referring Provider Obstetrics & Gynecology; Visit Provider Obstetrics & Gynecology
DX: R10.2 Pelvic and perineal pain (principal)
CPT/HCPCS: 76830; 76856

== ENCOUNTER → 2021-11-10 08:53 | Outpatient (CLI) | payer OTHER, SELFPAY ==
--- NOTE | 2021-11-10 08:54 | DI.NM.S_ITS ---
PROCEDURE: NM ROLANDO PERF SPECT R&S PHARM Rest and pharmacological stress myocardial perfusion SPECT with gated imaging and ejection fraction RADIOPHARMACEUTICAL: 27.1 mCi Tc-99m tetrafosmin IV at rest and 24.7 mCi Tc-99m tetrafosmin IV at peak effect of pharmacological stress. Fvq-iyf-decziuty was performed. INDICATIONS: SOB TECHNIQUE: Radiopharmaceutical was injected at peak stress test, and also at rest. SPECT images were obtained. SPECT myocardial perfusion images were displayed in short axis, horizontal long axis, and vertical long axis views. Gated images were reviewed using [employer] software. COMPARISON: None. CARDIAC STRESS: A pharmacologic stress test was performed under the supervision of an attending staff, using an infusion of regadenoson. Hemodynamic data: There is normal blood pressure and heart rate response to pharmacologic stress. Symptoms: The patient denied anginal chest pain. EKG: Sinus rhythm, frequent PVCS, no diagnostic changes of ischemia. FINDINGS: Raw data: There is good myocardial uptake of radiotracer. No significant motion artifacts. Ylkd-nk-hqzbv ratio is 0.28 (normal is less than 0.38 for tetrafosmin tracer). Left ventricle function: Gated images demonstrate normal left ventricular wall thickening. No segmental wall motion abnormalities. No transient ischemic dilation; TID is 1.0 (normal less than 1.3). Left ventricle resting end diastolic volume is 91 mL. Left ventricle stress ejection fraction is 69%; normal range is above 45%. Myocardial perfusion: There is normal distribution of activity in the right and left ventricular myocardium. No fixed or reversible perfusion defects. IMPRESSION: No evidence of pharmacologic induced ischemia. Frequent PVCs noted on ECG. Normal left ventricular function. Dictated by: Lay Graves D.O. on 11/11/2021 at 12:53 Approved by: Lay Graves D.O. on 11/11/2021 at 12:55
[2021-11-10 10:19] LABS: COVID19 -Nasal RAPID Negative (Negative)
--- NOTE | 2021-11-11 09:29 | PM.TREADMILL ---
Cardiac Stress Test Report Referral & Results Date Patient Seen: 11/11/21 Time Patient Seen: 09:00 Requesting provider: Janet Denton Indication: Shortness of breath Rest ECG: Sinus rhythm with frequent PVCs Procedure Note: After both written and verbal informed consent the patient had an IV started by the diagnostic imaging RN, and then was hooked up to the treadmill monitoring system. The Lexiscan material, and then the Cardiolite tracer, were administered sequentially. An additional 3 min was spent monitoring the patient while supine on the gurney. The patient had a normal response to all infused materials. No significant EKG changes. Impression: Successful Yolanda protocol. Perfusion imaging pending. Please note: Actual ECG tracings can be found in the PACS system.
== END ==
PROVIDERS: PCP Nurse Practitioner; Referring Provider Nurse Practitioner; Visit Provider Nurse Practitioner
DX: I49.3 Ventricular premature depolarization (principal); R06.02 Shortness of breath; Z20.822 Contact with and (suspected) exposure to COVID-19
CPT/HCPCS: 78452; 87635; 93016; 93017; 93018; A9502; J2785

== ENCOUNTER → 2021-11-26 06:31 | Outpatient (CLI) | payer OTHER, SELFPAY ==
[2021-11-26 08:31] LABS: Add Manual Diff / Slide Review NO; Basophils Absolute Auto 0 /uL (0-100); Basophils Percent Auto 0.8 % (0-2); Eosinophils Absolute Auto 100 /uL (0-450); Eosinophils Percent Auto 1.7 % (2-4); Hematocrit 36.8 % (36-46); Hemoglobin 12.8 g/dL (12.0-16.0); Lymphocytes Absolute Auto 1800 /uL (1100-4500); Lymphocytes Percent Auto 34.9 % (25-40); Mean Corpuscular HGB Conc 34.7 % (30-36); Mean Corpuscular Hemoglobin 32.2 PG (26-34); Mean Corpuscular Volume 92.7 fL (80-100); Monocytes Absolute Auto 400 /uL (0-900); Monocytes Percent Auto 7.8 % (3-14); Neutrophils Absolute Auto 2800 /uL (1500-7000); Neutrophils Percent Auto 54.8 % (50-75); Platelet Count 200 X10^3/uL (150-400); Red Blood Cell Count 3.97 X10^6/uL (4.0-5.2); Red Cell Distribution Width 13.6 % (11.6-14.8); White Blood Cell Count 5.1 X10^3/uL (4.5-11.0)
[2021-11-26 08:41] LABS: Hemoglobin A1C% w Est Avg Glu 6.6 % (4.0-6.0)
[2021-11-26 08:54] LABS: Alanine Aminotransferase 23 IU/L (<35); Albumin 4.2 g/dL (3.5-5.0); Albumin Globulin Ratio 1.4 (1.0-2.8); Alkaline Phosphatase 66 U/L (38-126); Aspartate Aminotransferase 27 IU/L (14-36); BUN Creatinine Ratio 25.3 (6-22); Bilirubin Total 0.6 mg/dL (0.2-1.3); Blood Urea Nitrogen 22 mg/dL (7-17); Carbon Dioxide 25 mmol/L (22-32); Chloride 104 mmol/L (98-107); Estimated Glomerular Filt Rate > 60 mL/min (>60); Glucose 118 mg/dL (80-110); HEMOLYSIS < 15 (0-50); Magnesium 2.2 mg/dL (1.6-2.3); Potassium 4.6 mmol/L (3.4-5.1); Sodium 139 mmol/L (137-145); Total Protein 7.2 g/dL (6.3-8.2)
[2021-11-26 09:07] LABS: Free T3, Triiodothyronine Free 3.84 pg/mL (2.77-5.27); Free T4, Direct Thyroxine 1.05 ng/dL (0.78-2.19)
[2021-11-26 09:21] LABS: Thyroid Stimulating Hormone 1.95 uIU/mL (0.47-4.68)
[2021-11-26 10:09] LABS: Hep C Virus Ab w/Reflex Quant NEGATIVE s/c (NEGATIVE)
[2021-11-26 15:24] LABS: Creatinine Urine Random 116.4 mg/dL
[2021-11-26 15:29] LABS: Microalbumi Creatinin Ratio Ur 8.5 ug/mg CR (<30)
== END ==
PROVIDERS: PCP Nurse Practitioner; Referring Provider Nurse Practitioner; Visit Provider Nurse Practitioner
DX: Z01.812 Encounter for preprocedural laboratory examination (principal); I10 Essential (primary) hypertension; R73.01 Impaired fasting glucose; Z11.59 Encounter for screening for other viral diseases; R79.9 Abnormal finding of blood chemistry, unspecified; R06.02 Shortness of breath
CPT/HCPCS: 36415; 80053; 82043; 82570; 83036; 83735; 84439; 84443; 84481; 85025; 86803

== ENCOUNTER → 2021-12-01 06:45 | Outpatient (CLI) | payer OTHER, SELFPAY ==
[2021-12-01 07:46] LABS: COVID19 -Nasal RAPID Negative (Negative)
== END ==
PROVIDERS: PCP Nurse Practitioner; Referring Provider Internal Medicine; Visit Provider Internal Medicine
DX: Z20.822 Contact with and (suspected) exposure to COVID-19 (principal)
CPT/HCPCS: 87635; C9803

== ENCOUNTER → 2021-12-02 06:49 | Outpatient (CLI) | payer OTHER, SELFPAY ==
--- NOTE | 2021-12-08 09:30 | PM.PFT.1 ---
Pulmonary Function Test Referral & Results Date Patient Seen: 12/02/21 Requesting provider: Janet Denton Results: The spirometry demonstrates an FVC of 2.48 L which is 78% of predicted. The FEV1 was measured at 1.97 L which is 82% of predicted. The FEV1/FVC ratio was 79 which is 105% of predicted. Following the administration of bronchodilator there was no appreciable change. Lung volumes show an SVC of 2.47 L which is 82% of predicted. The diffusing capacity was measured at 18.89 which is 70% of predicted. No hemoglobin value was provided, so no correction for potential anemia could be made, if appropriate. The maximum voluntary ventilation was minimally reduced Interpretation: This study demonstrates possibly very mild obstructive lung disease based on reduction FEV1 although FEV1/FVC ratio is preserved. There is no evidence of benefit following bronchodilator Lung volumes are also minimally reduced suggesting the possibility of minimal restrictive lung disease which may explain the abnormality of the FEV1 above Diffusing capacity is also mpeu-sz-spxjxypkeu reduced suggesting the presence of disease at the capillary alveolar level Compared to PFTs performed in August 2014, current study is essentially unchanged, although only forced spirometry was performed previously
== END ==
PROVIDERS: PCP Nurse Practitioner; Referring Provider Nurse Practitioner; Visit Provider Nurse Practitioner
DX: R06.02 Shortness of breath (principal); Z87.891 Personal history of nicotine dependence; J98.8 Other specified respiratory disorders
CPT/HCPCS: 94060; 94726; 94729

== ENCOUNTER → 2021-12-24 07:45 | Outpatient (CLI) | payer OTHER, SELFPAY ==
--- NOTE | 2021-12-24 | DI.MG.S_ITS ---
BILATERAL DIGITAL SCREENING MAMMOGRAM 3D/2D WITH CAD: 12/24/2021 CLINICAL: Routine screening. Comparison is made to exams dated: 12/19/2020 mammogram, 12/13/2019 mammogram, and 12/11/2018 mammogram - [facility]. Both breasts are almost entirely fatty (category a/<25% glandular tissue). Current study was also evaluated with a Computer Aided Detection (CAD) system. No significant masses, calcifications, or other findings are seen in either breast. There has been no significant interval change. IMPRESSION: NEGATIVE There is no mammographic evidence of malignancy. A 1 year screening mammogram is recommended. Based on the Tyrer Cuzick model (a risk assessment model) the patient's lifetime risk is 3.3% and her 10 year risk is 2.5%. According to the ACR, ACS, and NCCN guidelines, an annual breast MRI exam along with mammogram is recommended if the patient's lifetime risk is 20% or greater. This exam was interpreted at Station ID: [id number]. NOTE: For mammograms, a report in lay terms will be sent to the patient. Approximately 15% of breast malignancies will not be visualized mammographically. In the management of a palpable breast mass, a negative mammogram must not discourage biopsy of a clinically suspicious lesion. Electronically Signed By: Jf Osorio M.D., jr/kan:12/24/2021 08:49:55 letter sent: Normal Exam ACR BI-RADS Category 1: Negative 3341F
== END ==
PROVIDERS: PCP Nurse Practitioner; Referring Provider Nurse Practitioner; Visit Provider Nurse Practitioner
DX: Z12.31 Encounter for screening mammogram for malignant neoplasm of breast (principal)
CPT/HCPCS: 77063; 77067

== ENCOUNTER → 2022-01-25 09:08 | Outpatient (CLI) | payer OTHER, SELFPAY ==
--- NOTE | 2022-01-25 09:09 | DI.ECHO.S_ITS ---
[facility]---------+ [facility] +---------+ : : [address] : : : : [id number] : : : : Phone: [phone]---------+ Echocardiogram Report + + :Name: ABHAY ELIZABETH Study Date: 01/25/2022 Height: 66 in : :[facility] ReadingLocation: Weight: 230 lb : : Gender: Female BSA: 2.1 m2 : :: 1950 Age: 71 yrs BP: 130/76 mmHg: :Reason For Study: SHORTNESS OF BREATH : :Ordering Physician: KARLEE, : :DENIS Performed By: Malia Moran : :Referring: DENIS DESIR : + + Interpretation Summary The ejection fraction is estimated to be 60-65%. Left ventricular wall thickness is mildly increased. Diastolic function could not be accurately assessed due to unobtainable data. The right ventricle is normal in size and function. The left atrium is mildly dilated. There is mild mitral regurgitation. There is mild aortic regurgitation. Unable to estimate PASP. Compared to the prior study dated 09/28/2018, no significant change. Procedure: A two-dimensional transthoracic echocardiogram with color flow and Doppler was performed. The study quality was technically adequate. Comparison is made with the echocardiogram of 09/28/218. The patient was in sinus bradycardia with heart rates between 48-55 bpm during the exam. The patient had occasional PVCs during the exam. Left Ventricle: The left ventricle is normal in size. Left ventricular wall thickness is mildly increased. The ejection fraction is estimated to be 60- 65%. Diastolic function could not be accurately assessed due to unobtainable data. Right Ventricle: The right ventricle is normal in size and function. Atria: The left atrium is mildly dilated. Right atrial size is normal. There is no Doppler evidence for an interatrial shunt. Mitral Valve: The mitral valve is normal in structure and function. There is mild mitral regurgitation. Aortic Valve: The aortic valve is trileaflet. The aortic valve opens well. There is no aortic valve stenosis. There is mild aortic regurgitation. Tricuspid Valve: The tricuspid valve is normal in structure and function. There is a trace or physiologic amount of tricuspid regurgitation. Pulmonary artery pressures cannot be estimated because of the lack of a measurable TR jet velocity. Pulmonic Valve: The pulmonic valve leaflets are thin and pliable; valve motion is normal. There is mild pulmonic regurgitation. Great Vessels: The aortic root is normal size. The ascending aorta is at the upper limits of normal in size. The IVC is of normal diameter and collapses greater than 50% with a sniff. This suggests a low right atrial pressure of 3 mm Hg. Pericardium/ Pleura There is no pericardial effusion. There is no pleural effusion. MMode/2D Measurements & Calculations LVIDd: 5.9 cm LVOT diam: 2.0 cm LVIDs: 4.2 cm Ao root diam: 3.4 cm FS: 29.0 % asc Aorta Diam: 3.8 cm IVSd: 0.96 cm Ao Arch Diam (Prox Trans): 3.8 cm LVPWd: 1.2 cm LV saleh. diameter/BSA (cm/m^2): 2.8 LV sys. diameter/BSA (cm/m^2): 2.0 LA A2 area: 23.9 cm2 RA long axis: 5.6 cm LA A4 area: 23.9 cm2 RA area: 19.6 cm2 LA length (vol): 6.3 cm RA vol: 57.7 ml LA vol: 76.4 ml RA : 27.2 ml/m2 LA vol index: 36.0 ml/m2 IVC diam: 1.6 cm RVD1 (basal): 3.5 cm RVD2 (mid): 2.9 cm TAPSE: 1.9 cm Doppler Measurements & Calculations Ao V2 max: 156.1 cm/sec LVOT Max Tony: 78.2 cm/sec Ao V2 mean: 105.5 cm/sec LV V1 max P.4 mmHg Ao max P.7 mmHg LV V1 VTI: 19.3 cm Ao mean P.2 mmHg ALESHA(I,D): 1.6 cm2 Ao V2 VTI: 37.4 cm ALESHA(V,D): 1.6 cm2 sev ratio: 0.52 ALESHA indexed to BSA (cm^2/m^2): 0.77 MV E max tony: 75.5 cm/sec PA V2 max: 99.4 cm/sec MV A max tony: 89.6 cm/sec PA V2 mean: 63.5 cm/sec MV E/A: 0.84 PA mean P.9 mmHg Med Peak E' Tony: 5.0 cm/sec PA pr(Accel): 22.5 mmHg E/E' med: 15.2 Lat Peak E' Tony: 6.6 cm/sec E/E' lat: 11.4 E/e' average: 13.3 MV dec time: 0.30 sec SV(LVOT): 60.8 ml Reading Physician:02:21 PM
== END ==
PROVIDERS: PCP Nurse Practitioner; Referring Provider Nurse Practitioner; Visit Provider Nurse Practitioner
DX: I08.0 Rheumatic disorders of both mitral and aortic valves (principal); R06.02 Shortness of breath
CPT/HCPCS: 93306

== ENCOUNTER → 2022-05-19 15:38 | Outpatient (CLI) | payer OTHER, SELFPAY ==
[2022-05-19 16:55] LABS: Add Manual Diff / Slide Review NO; Basophils Absolute Auto 0 /uL (0-100); Basophils Percent Auto 0.6 % (0-2); Eosinophils Absolute Auto 100 /uL (0-450); Eosinophils Percent Auto 2.1 % (2-4); Hemoglobin 11.8 g/dL (12.0-16.0); Lymphocytes Absolute Auto 1900 /uL (1100-4500); Mean Corpuscular HGB Conc 34.8 % (30-36); Mean Corpuscular Hemoglobin 35.4 PG (26-34); Mean Corpuscular Volume 101.6 fL (80-100); Monocytes Absolute Auto 400 /uL (0-900); Monocytes Percent Auto 5.9 % (3-14); Neutrophils Absolute Auto 3600 /uL (1500-7000); Neutrophils Percent Auto 60.4 % (50-75); Platelet Count 167 X10^3/uL (150-400); Red Blood Cell Count 3.35 X10^6/uL (4.0-5.2); Red Cell Distribution Width 17.6 % (11.6-14.8)
[2022-05-19 17:06] LABS: Hemoglobin A1C% w Est Avg Glu 6.3 % (4.0-6.0)
[2022-05-19 17:27] LABS: Alanine Aminotransferase 24 IU/L (<35); Albumin 4.3 g/dL (3.5-5.0); Albumin Globulin Ratio 1.5 (1.0-2.8); Alkaline Phosphatase 81 U/L (38-126); Aspartate Aminotransferase 30 IU/L (14-36); BUN Creatinine Ratio 23.3 (6-22); Bilirubin Total 0.6 mg/dL (0.2-1.3); Blood Urea Nitrogen 28 mg/dL (7-17); Calcium 9.4 mg/dL (8.4-10.2); Carbon Dioxide 24 mmol/L (22-32); Chloride 103 mmol/L (98-107); Estimated Glomerular Filt Rate 48 mL/min (>60); Globulin 2.9 g/dL (1.7-4.1); Glucose 123 mg/dL (80-110); HEMOLYSIS < 15 (0-50); Potassium 4.7 mmol/L (3.4-5.1); Sodium 138 mmol/L (137-145); Total Protein 7.2 g/dL (6.3-8.2)
== END ==
PROVIDERS: PCP Nurse Practitioner; Referring Provider Internal Medicine Cardiovascular Disease; Visit Provider Internal Medicine Cardiovascular Disease
DX: I47.1 Supraventricular tachycardia (principal); Z79.899 Other long term (current) drug therapy; R73.03 Prediabetes; D64.9 Anemia, unspecified
CPT/HCPCS: 36415; 80053; 83036; 85025

== ENCOUNTER 2022-06-14 08:21 | Day surgery (SDC) | payer OTHER, SELFPAY ==
--- NOTE | 2022-06-14 | PATH_ITS ---
[facility] Accession Number: [id number] No. of containers..01 Tissue . 01 Material submitted: . gastrointestinal site - GASTRIC BIOPSY . 01 Diagnosis: Stomach, Biopsy: Antral mucosa with no diagnostic abnormality. No evidence of Helicobacter organisms on H/E stain. Negative for intestinal metaplasia. Negative for dysplasia or malignancy. [facility] 06/20/2022 0937 Local . 01 Electronically signed: . Pamela Mckinney MD, Pathologist NPI- [id number] . 01 Gross description: . GASTRIC BIOPSY: Received in formalin are 2 fragment(s) of jara, soft tissue measuring 0.3 x 0.2 x 0.1 cm to 0.2 x 0.1 x 0.1 cm submitted entirely in 1 cassette(s) /CPE 06/16/2022 0721 Local . 01 Pathologist provided ICD-10: Z12.11, D50.9 . 01 CPT . 063095 Specimen Comment: A courtesy copy of this report has been sent to [phone] Performed at: 01 [facility] [address] [place] [address], [place], [place] [id number] MD Allen Flores MD Phone: [phone]
[2022-06-14 08:43] VITALS: BP 162/92; PULSE 92; RESP 16; TEMP 36.9; O2SAT 100; BMI 32.3
[2022-06-14] MEDS: LACTATED RINGERS 1,000 ML 200 ML IV (09:07)
--- NOTE | 2022-06-14 09:40 | PM.PREOP ---
Pre-operative Note Interval Note History & Physical reviewed/Exam performed by Physician: Yes Changes to H&P: No
--- NOTE | 2022-06-14 10:25 | PM.OP.EC ---
Operative Date/Time/Diagnoses Date of procedure: 06/14/22 Time of procedure: 10:25 Pre-op diagnosis: Anemia, dyspnea Post-op diagnosis: other (Gastritis, hiatal hernia) Procedure & Clinicians Study performed: Esophagoduodenoscopy and colonoscopy Same procedure as scheduled: Yes Indications: 71-year-old woman with shortness of breath and anemia here for EGD and colonoscopy Surgeon: Aldo Winters Procedure Notes Procedure in detail: The history and physical was performed/updated and the patient is ASA class is 2. The procedure was discussed in detail with the patient. Potential risks complications including infection, bleeding, missed diagnosis, perforation, need for surgery, and were explained. Their questions were answered and informed consent was obtained. Patient placed in left lateral decubitus position. Time out was performed. Procedural sedation was administered by Anesthesia. A bite block was placed. the scope was inserted into the mouth and advanced through the esophagus and into the stomach. The stomach was notable for mild gastritis without ulcer. Biopsy of the stomach was performed with forceps.. The pylorus was intubated and the duodenum was normal to the 2nd portion. The scope was retroflexed within the stomach and there was a moderate size paraesophageal hiatal hernia. The scope was withdrawn into the esophagus the Z line was seen at 35 cm from the incisions. There was no Wetzel's esophagitis, esophageal masses or strictures. Stomach was desufflated and scope removed. Examination began with a thorough inspection of the perianal area there was no evidence of fissures, fistulae, external hemorrhoids or cutaneous malignancy. The colonoscopy scope was then placed into the anal canal and was advanced to the cecum, which was identified by the ileocecal valve, the appendiceal orifice and the confluence of the taenia. The scope was then slowly withdrawn examining colon thoroughly in all directions, irrigating it of any residual stool. The colon was without masses or polyps. There was mild diverticulosis and internal hemorrhoids. The patient tolerated the procedure well. They will be discharged once criteria are met. The prep was of good/excellent quality. The withdrawl time was 6 minutes. Findings: gastritis Specimen(s): other (Gastric biopsy) Impression: Hiatal hernia Post-procedure Recommendations: Colonscopy in 10 years and High fiber diet Plan for aftercare: Follow-up surgical clinic within the next 2 weeks for discussion of results Disposition: same day surgery
[2022-06-14 10:26] VITALS: BP 114/73; PULSE 90; RESP 16; TEMP 37.1; O2SAT 98
[2022-06-14 10:32] VITALS: BP 126/75; PULSE 87; RESP 17; TEMP 37; O2SAT 99
[2022-06-14 10:45] VITALS: BP 129/83; PULSE 83; RESP 18; TEMP 36.9; O2SAT 97
== END 2022-06-14 10:54 | disposition home or self-care (01) ==
PROVIDERS: PCP Nurse Practitioner; Referring Provider Surgery; Visit Provider Surgery
PROC: 0DJ08ZZ Inspection of Upper Intestinal Tract, Via Natural or Artificial Opening Endoscopic (ICD-10-PCS; CPT 43235; principal; 2022-06-14 09:30)
PROC: 0DJD8ZZ Inspection of Lower Intestinal Tract, Via Natural or Artificial Opening Endoscopic (ICD-10-PCS; CPT 45378; 2022-06-14 09:30)
DX: Z12.11 Encounter for screening for malignant neoplasm of colon (principal); R06.00 Dyspnea, unspecified; D50.9 Iron deficiency anemia, unspecified; K44.9 Diaphragmatic hernia without obstruction or gangrene; K57.30 Diverticulosis of large intestine without perforation or abscess without bleeding; K64.8 Other hemorrhoids
CPT/HCPCS: 45378; 43239; J2704

== ENCOUNTER → 2022-08-11 09:29 | Outpatient (CLI) | payer OTHER, SELFPAY ==
--- NOTE | 2022-08-11 09:31 | DI.US.S_ITS ---
PROCEDURE: US PERIPH VENOUS LOW EXTREM RT INDICATIONS: RIGHT LEG PAIN/SWELLING TECHNIQUE: Real-time imaging, as well as color and pulse Doppler interrogation, were performed of the lower extremity deep veins from the inguinal ligament to the popliteal fossa. COMPARISON: None. FINDINGS: There is deep venous thrombosis involving the distal segment of the right superficial femoral vein. The remaining deep venous vessels of the right lower extremity appear patent. IMPRESSION: Deep venous thrombosis involving the distal segment of the right superficial femoral vein. Findings were discussed with Rosa Brito MA, Jacob at 1031hrs. Dictated by: Bola Shafer M.D. on 08/11/2022 at 10:27 Approved by: Bola Shafer M.D. on 08/11/2022 at 10:33
--- NOTE | 2022-08-11 09:31 | DI.RAD.S_ITS ---
PROCEDURE: XR TIBIA FUBULA RT 2V INDICATIONS: right leg pain TECHNIQUE: 2 views of the tibia and fibula were acquired. COMPARISON: None. FINDINGS: Bones: No fractures or dislocations. No suspicious bony lesions. Soft tissues: No suspicious soft tissue calcifications or masses. IMPRESSION: Right tibia/fibula without acute fracture or malalignment. If there are persistent symptoms or clinical suspicion for pathology, then repeat radiographs or advanced imaging (CT or MRI) may be considered for further evaluation. Dictated by: Bola Shafer M.D. on 08/11/2022 at 14:13 Approved by: Bola Shafer M.D. on 08/11/2022 at 14:14
== END ==
PROVIDERS: PCP Nurse Practitioner; Referring Provider Nurse Practitioner Family; Visit Provider Nurse Practitioner Family
DX: I82.411 Acute embolism and thrombosis of right femoral vein (principal); M79.604 Pain in right leg
CPT/HCPCS: 73590; 93971

== ENCOUNTER 2022-08-11 10:12 | Emergency (ER) | payer OTHER, SELFPAY ==
[2022-08-11 10:27] VITALS: BP 137/82; PULSE 78; RESP 15; TEMP 37; O2SAT 99; BMI 35.5
--- NOTE | 2022-08-11 15:11 | ED_ITS ---
HPI - Extremity Problem <Barbara Bradford PA-C - Last Filed: 08/11/22 21:01> General Chief complaint: Extremity Problem,Nontraumatic Stated complaint: blood clot in leg, sent by Time Seen by Provider: 08/11/22 11:58 Source: patient Mode of arrival: Ambulatory History of Present Illness HPI Narrative: This is a 72-year-old female who presents sent by walk-in clinic with concern for positive DVT finding on ultrasound performed this morning. Patient has been dealing with pain around her right knee for the past 4 weeks or so. She states that it started over 24 hour. She 1st noticed some pain in the back in the middle of her knee and then it wrapped around towards the middle of her knee a little bit she states it has been a constant dull aching pain and has gradually been worsening over the last few weeks. She was previously evaluated for this but today was the 1st time that she had an ultrasound done that came back positive for DVT. She states she is not had any recent long flights, car rides does not smoke and does not take any estrogen medications. She denies any shortness of breath compared to baseline, also denies chest pain history of DVTs or any other symptoms. She has been ambulating well but states that the leg issue was initially just an uncomfortable ache and over the past few weeks it is become ?quite painful?. Related Data Home Medications Medication Instructions Recorded Confirmed [CALCIUM/VITAMIN D] 2 tab PO QDAY ##0 10/25/16 07/22/22 acetaminophen 500 mg tablet 1,000 mg PO Q6H PRN Pain (Scale 07/07/21 07/22/22 (Tylenol Extra Strength) Score 1-3) diltiazem HCl 120 mg capsule,24 120 mg PO DAILY 06/14/22 07/22/22 hr,extended release Previous Rx's Medication Instructions Recorded Disabled Parking Permit See Rx Instructions .Route 05/27/21 .COMPLEX #1 unit lisinopril 30 mg tablet 30 mg PO DAILY #90 tabs 11/17/21 metoprolol succinate 50 mg See Rx Instructions .Route 11/17/21 tablet,extended release 24 hr .COMPLEX #180 tabs triamterene 37.5 1 tab PO DAILY #90 tabs 11/17/21 mg-hydrochlorothiazide 25 mg tablet valacyclovir 500 mg tablet 500 mg PO DAILY #90 tabs 11/17/21 metformin 500 mg tablet 500 mg PO DAILY #90 tabs 02/03/22 bupropion HCl 150 mg 24 hr tablet, 300 mg PO QAM #180 tabs 02/28/22 extended release rivaroxaban 15 mg tablet 15 mg PO BID DVT 21 days #42 tabs 08/11/22 rivaroxaban 20 mg tablet See Rx Instructions .Route 08/11/22 .COMPLEX DVT 70 days #70 tabs dabigatran etexilate 150 mg 150 mg PO BID 90 days #180 caps 08/16/22 capsule (Pradaxa) Allergies Allergy/AdvReac Type Severity Reaction Status Date / Time No Known Drug Allergies Allergy Verified 08/11/22 10:29 Review of Systems <Barbara Bradford PA-C - Last Filed: 08/11/22 21:01> Review of Systems Narrative: See HPI Patient History <Barbara Bradford PA-C - Last Filed: 08/11/22 21:01> Medical History Arthritis (Unknown) Elevated fasting glucose Frequent PVCs Hyperlipidemia Hypertension (Unknown) Osteopenia (~2014) Pre-diabetes SOBOE (shortness of breath on exertion) Surgical History Hx of bilateral breast reduction surgery (12/2015) Family History Father No problems noted. Mother No problems noted. Social History marital status: unknown household members: friend(s) lives independently: Yes occupational status: previously employed Smoking Status: Former smoker Tobacco: How many years used: 5 second hand exposure: No alcohol intake: current substance use type: does not use Smoking Status: Former smoker alcohol intake frequency: holidays/special occasions only Substance Use Type: does not use Exam <Barbara Bradford PA-C - Last Filed: 08/11/22 21:01> Narrative Exam Narrative: GENERAL: 72 year old patient appears stated age. Obese, Well-developed patient, in mild distress. HEAD: Atraumatic. Normocephalic. EYES: Pupils equal round and reactive. Extraocular motions intact. No scleral icterus. No injection or drainage. ENT: Nose without bleeding, purulent drainage. Airway patent. NECK: Trachea midline. Non tender CARDIOVASCULAR: Regular rate and rhythm without murmurs, gallops, or rubs. RESPIRATORY: Clear to auscultation. Breath sounds equal bilaterally. No wheezes, rales, or rhonchi. GASTROINTESTINAL: Abdomen protuberant, nondistended. EXTREMITIES: There is mild erythema, mild swelling and tenderness present on the medial aspect of the right knee as well as the anteromedial aspect of the upper knight/calf just medial to the tibial tuberosity. There strong bilateral pedal pulses present, there is slight edema present without pitting of the right foot and ankle. Patient has no increased pain with dorsiflexion and plantar flexion. No edema or joint tenderness. NEURO: AOx3. SKIN: No rash or erythema of visible areas Initial Vital Signs Initial Vital Signs: Vital Signs Temperature 98.6 F 08/11/22 10:27 Pulse Rate 78 08/11/22 10:27 Respiratory Rate 15 08/11/22 10:27 Blood Pressure 137/82 08/11/22 10:27 Pulse Oximetry 99 08/11/22 10:27 Oxygen Delivery Method Room Air 08/11/22 10:27 <Morales Burns MD - Last Filed: 08/18/22 04:54> Initial Vital Signs Initial Vital Signs: Vital Signs Temperature 98.6 F 08/11/22 10:27 Pulse Rate 78 08/11/22 10:27 Respiratory Rate 15 08/11/22 10:27 Blood Pressure 137/82 08/11/22 10:27 Pulse Oximetry 99 08/11/22 10:27 Oxygen Delivery Method Room Air 08/11/22 10:27 Course <Barbara Bradford PA-C - Last Filed: 08/11/22 21:01> Course Course Narrative: did discuss this pt with Dr Burns, who advises getting basic labs, no coags needed. 1507 Orders Ordered: ED Orders 08/11/22 15:40 CBC Auto Diff [Complete Blood Count AUTO DIFF] Stat CMP [Comprehensive Metabolic Panel] Stat Consultations Consultation #1: Did speak with in-house pharmacist Patricia regarding this patient given she is on diltiazem. She states this is not an absolute contraindication to taking Xarelto however it will put the patient is slightly increased bleeding risk as it may increased concentration of Xarelto. And she recommends having more frequent labs done for re-evaluation. I have made a note of this in the patient's paperwork and discussed this with her personally. 1700 Vital Signs Vital signs: Vital Signs - 8 hr 08/11/22 10:27 Temperature 98.6 F Pulse Rate 78 Respiratory Rate 15 Blood Pressure 137/82 Pulse Oximetry 99 Oxygen Delivery Method Room Air <Morales Burns MD - Last Filed: 08/18/22 04:54> Orders Ordered: ED Orders 08/11/22 15:40 CBC Auto Diff [Complete Blood Count AUTO DIFF] Stat CMP [Comprehensive Metabolic Panel] Stat Vital Signs Vital signs: Vital Signs - 8 hr 08/11/22 10:27 Temperature 98.6 F Pulse Rate 78 Respiratory Rate 15 Blood Pressure 137/82 Pulse Oximetry 99 Oxygen Delivery Method Room Air MDM - Extremity (Nontraumatic) <Barbara Bradford PA-C - Last Filed: 08/11/22 21:01> Differential Diagnosis Differential diagnosis: Likely deep vein thrombosis of lower extremity Medical Records Attestation: I reviewed the patient's medical records. Lab Data Attestation: I reviewed the patient's lab results. 08/11/22 15:40 08/11/22 15:40 Labs: Lab Results 08/11/22 08/11/22 Range/Units 15:40 15:40 WBC 6.7 (4.5-11.0) X10^3/uL RBC 3.45 L (4.0-5.2) X10^6/uL Hgb 12.0 (12.0-16.0) g/dL Hct 35.1 L (36-46) % MCV 101.6 H (80-100) fL MCH 34.9 H (26-34) PG MCHC 34.4 (30-36) % RDW 13.0 (11.6-14.8) % Plt Count 245 (150-400) X10^3/uL Neut % (Auto) 61.4 (50-75) % Lymph % (Auto) 28.9 (25-40) % Sunflower % (Auto) 7.0 (3-14) % Eos % (Auto) 2.0 (2-4) % Baso % (Auto) 0.7 (0-2) % Neut # (Auto) 4100 (4279-1112) /uL Lymph # (Auto) 1900 (7118-9311) /uL Sunflower # (Auto) 500 (0-900) /uL Eos # (Auto) 100 (0-450) /uL Baso # (Auto) 0 (0-100) /uL Sodium 138 (137-145) mmol/L Potassium 4.0 (3.4-5.1) mmol/L Chloride 103 (98-107) mmol/L Carbon Dioxide 26 (22-32) mmol/L BUN 23 H (7-17) mg/dL Creatinine 0.85 (0.52-1.04) mg/dL Estimated GFR > 60 (>60) mL/min BUN/Creatinine Ratio 27.1 H (6-22) Glucose 97 (80-110) mg/dL Calcium 9.5 (8.4-10.2) mg/dL Total Bilirubin 0.6 (0.2-1.3) mg/dL AST 27 (14-36) IU/L ALT 22 (<35) IU/L Alkaline Phosphatase 82 (38-126) U/L Total Protein 7.4 (6.3-8.2) g/dL Albumin 4.3 (3.5-5.0) g/dL Globulin 3.1 (1.7-4.1) g/dL Albumin/Globulin Ratio 1.4 (1.0-2.8) Imaging Data US - DVT: Radiologist's Impression: [address] [address] Ultrasound Report Signed Patient: Ina López MR#: [id number] : 1950 Acct:[id number] Age/Sex: 72 / F Date of Service: 08/11/22 Loc: [place] Accession Number: [id number] ?? Procedure: US periph venous low extrem rt Ordering Provider: Maribell Calderon PROCEDURE:? US PERIPH VENOUS LOW EXTREM RT ? INDICATIONS:? RIGHT LEG PAIN/SWELLING ? TECHNIQUE:? Real-time imaging, as well as color and pulse Doppler interrogation, were performed of the lower extremity deep veins from the inguinal ligament to the popliteal fossa.? ? COMPARISON:? None. ? FINDINGS:? There is deep venous thrombosis involving the distal segment of the right superficial femoral vein.? The remaining deep venous vessels of the right lower extremity appear patent. ? IMPRESSION:? Deep venous thrombosis involving the distal segment of the right superficial femoral vein. ? Findings were discussed with SHANE Brito's Chito KAPADIA at 1031hrs. ? ? Dictated by: Bola Shafer M.D. on 08/11/2022 at 10:27 ? ? Approved by: Bola Shafer M.D. on 08/11/2022 at 10:33?? Treatment and disposition Shared decision making:: Shared decision-making was used and determined the patient's plan of care and plan for outpatient follow-up MDM Narrative Medical decision making narrative: 72-year-old woman history of anemia, prediabetes, obesity, hyperlipidemia, hypertension presents sent by walk-in clinic after 4 weeks of right knee/leg pain and positive DVT finding on ultrasound obtained this morning from walk-in clinic. Patient has no signs or symptoms suggesting PE, she does have a history of mild anemia and rechecked labs today, anemia has improved, in addition she is on diltiazem and will need to follow closely with her PCP for frequent lab checks given this. Pharmacy was consulted regarding this. Counseled the patient regarding these factors and prescribed rivaroxaban for 90 days with initial 15 mg b.i.d. for 21 days followed by 20 mg once daily. Patient is advised not to take aspirin while she is on this medication. Patient is in understanding and agreement with the plan, return precautions provided, follow- up plan discussed, all questions answered. <Morales Burns MD - Last Filed: 08/18/22 04:54> Lab Data Labs: Lab Results 08/11/22 08/11/22 Range/Units 15:40 15:40 WBC 6.7 (4.5-11.0) X10^3/uL RBC 3.45 L (4.0-5.2) X10^6/uL Hgb 12.0 (12.0-16.0) g/dL Hct 35.1 L (36-46) % MCV 101.6 H (80-100) fL MCH 34.9 H (26-34) PG MCHC 34.4 (30-36) % RDW 13.0 (11.6-14.8) % Plt Count 245 (150-400) X10^3/uL Neut % (Auto) 61.4 (50-75) % Lymph % (Auto) 28.9 (25-40) % Sunflower % (Auto) 7.0 (3-14) % Eos % (Auto) 2.0 (2-4) % Baso % (Auto) 0.7 (0-2) % Neut # (Auto) 4100 (6544-2781) /uL Lymph # (Auto) 1900 (9321-4641) /uL Sunflower # (Auto) 500 (0-900) /uL Eos # (Auto) 100 (0-450) /uL Baso # (Auto) 0 (0-100) /uL Sodium 138 (137-145) mmol/L Potassium 4.0 (3.4-5.1) mmol/L Chloride 103 (98-107) mmol/L Carbon Dioxide 26 (22-32) mmol/L BUN 23 H (7-17) mg/dL Creatinine 0.85 (0.52-1.04) mg/dL Estimated GFR > 60 (>60) mL/min BUN/Creatinine Ratio 27.1 H (6-22) Glucose 97 (80-110) mg/dL Calcium 9.5 (8.4-10.2) mg/dL Total Bilirubin 0.6 (0.2-1.3) mg/dL AST 27 (14-36) IU/L ALT 22 (<35) IU/L Alkaline Phosphatase 82 (38-126) U/L Total Protein 7.4 (6.3-8.2) g/dL Albumin 4.3 (3.5-5.0) g/dL Globulin 3.1 (1.7-4.1) g/dL Albumin/Globulin Ratio 1.4 (1.0-2.8) Discharge Plan Departure Patient Disposition: Home Clinical Impression: DVT (deep venous thrombosis), Leg pain, right Activity Restrictions/Additional Instructions: Thank you for letting us be part of your care in the emergency department today. Based on the ultrasound obtained after he visit at the walk-in clinic this morning you do have a DVT in your superficial femoral vein. We have prescribed medication for you for this called rivaroxaban (Xarelto). You will note that you have 2 prescriptions. This is because the 1st 21 days of your medication are at 1 dosage and the subsequent medication is at a different dosage. Please read the instructions carefully, and you can refer to this as well you will need to take the 15 mg pills twice a day once every 12 hours for the 1st 21 days. When you completed taking these you will move onto the 20 mg pills anymore take these only once a day until you have completed these. Depending on your follow- up ultrasound and the wishes of your primary care provider you may need to continue therapy for longer than 3 months total. I would recommend talking to your primary care provider about getting a repeat ultrasound done in about 3 weeks' time to re-evaluate. Of course if you are having new or worsening symptoms such as increasing swelling, increasing pain certainly, shortness of breath or chest pain that is new for you or other symptoms of concern do not hesitate to be re-evaluated sooner. Because you are taking diltiazem, this may increase the relative concentration of the blood thinner medication in your body and it is important that ear primary care provider rechecked your labs on a more frequent basis because of this, the pharmacist I spoke with today also recommended that you do not take any aspirin while you were taking this medication. You will be at a slightly increased risk of bleeding. Follow up with your doctor in 1-2 days is recommended nonetheless to continue to rule out serious underlying causes of your symptoms. Please call the office for an appointment. Please return to the Emergency Department for any worsening or persistent symptoms. Please take medications as directed. Prescriptions: New rivaroxaban 15 mg tablet 15 mg PO BID MDD 30mg 21 Days Qty: 42 0RF Rx Instructions: must administer with evening meal rivaroxaban 20 mg tablet See Rx Instructions .ROUTE .COMPLEX 70 Days Qty: 70 0RF Rx Instructions: must administer with evening meal. Start taking 20mg dose once daily on 09/01/2022 (do NOT take in addition to/at the same time as the 15 mg /twice daily dose) No Action [CALCIUM/VITAMIN D] 2 tab PO QDAY Qty: 0 bupropion HCl 150 mg tablet extended release 24 hr 300 mg PO QAM Qty: 180 2RF Rx Instructions: Take 300mg (2 tablets) by mouth each morning dabigatran etexilate [Pradaxa] 150 mg capsule 150 mg PO BID 90 Days Qty: 180 3RF Disabled Parking Permit See Rx Instructions .ROUTE .COMPLEX Qty: 1 0RF Rx Instructions: I find this patient to be medically disabled and qualify for disabled parking as indicated and signed on the accompanying disabled parking application for individuals. acetaminophen [Tylenol Extra Strength] 500 mg tablet 1,000 mg PO Q6H PRN (Reason: Pain (Scale Score 1-3)) lisinopril 30 mg tablet 30 mg PO DAILY Qty: 90 3RF Rx Instructions: Take 1 tablet daily for hypertension metoprolol succinate 50 mg tablet extended release 24 hr See Rx Instructions .ROUTE .COMPLEX Qty: 180 3RF Dose Instruction: Take 1 tablet (50 mg) by mouth 2 times daily for Palpitation Rx Instructions: Take 1 tablet (50 mg) by mouth 2 times daily for Palpitation triamterene-hydrochlorothiazid 37.5-25 mg tablet 1 tab PO DAILY Qty: 90 3RF Rx Instructions: Take 1 tablet daily for hypertension valacyclovir 500 mg tablet 500 mg PO DAILY Qty: 90 3RF Rx Instructions: Take 1 tab daily for herpatic lesion suppression, after course for shingles metformin 500 mg tablet 500 mg PO DAILY Qty: 90 3RF Rx Instructions: Take 1 tab with evening meal daily diltiazem HCl 120 mg Capsule,Extended Release 24 Hr 120 mg PO DAILY Referrals: Janet Denton ARNP [Primary Care Provider] - Stand Alone Forms: Patient Portal/API <Morales Burns MD - Last Filed: 08/18/22 04:54> Cosign ED Attending Cosignature Attestation: I was immediately available in the department for consultation. ?This documentation has been reviewed and I agree with assessment and plan. Supervised by Morales Burns MD
[2022-08-11 16:01] LABS: Alanine Aminotransferase 22 IU/L (<35); Albumin 4.3 g/dL (3.5-5.0); Albumin Globulin Ratio 1.4 (1.0-2.8); Alkaline Phosphatase 82 U/L (38-126); Aspartate Aminotransferase 27 IU/L (14-36); BUN Creatinine Ratio 27.1 (6-22); Bilirubin Total 0.6 mg/dL (0.2-1.3); Blood Urea Nitrogen 23 mg/dL (7-17); Calcium 9.5 mg/dL (8.4-10.2); Carbon Dioxide 26 mmol/L (22-32); Chloride 103 mmol/L (98-107); Estimated Glomerular Filt Rate > 60 mL/min (>60); Globulin 3.1 g/dL (1.7-4.1); Glucose 97 mg/dL (80-110); HEMOLYSIS < 15 (0-50); Sodium 138 mmol/L (137-145); Total Protein 7.4 g/dL (6.3-8.2)
[2022-08-11 16:02] LABS: Add Manual Diff / Slide Review NO; Basophils Absolute Auto 0 /uL (0-100); Basophils Percent Auto 0.7 % (0-2); Eosinophils Absolute Auto 100 /uL (0-450); Hematocrit 35.1 % (36-46); Lymphocytes Absolute Auto 1900 /uL (1100-4500); Lymphocytes Percent Auto 28.9 % (25-40); Mean Corpuscular HGB Conc 34.4 % (30-36); Mean Corpuscular Hemoglobin 34.9 PG (26-34); Mean Corpuscular Volume 101.6 fL (80-100); Monocytes Absolute Auto 500 /uL (0-900); Neutrophils Absolute Auto 4100 /uL (1500-7000); Neutrophils Percent Auto 61.4 % (50-75); Platelet Count 245 X10^3/uL (150-400); Red Blood Cell Count 3.45 X10^6/uL (4.0-5.2); White Blood Cell Count 6.7 X10^3/uL (4.5-11.0)
== END 2022-08-11 17:21 | disposition home or self-care (01) ==
PROVIDERS: Emergency Provider Student in an Organized Health Care Education/Training Program; PCP Nurse Practitioner
DX: I82.401 Acute embolism and thrombosis of unspecified deep veins of right lower extremity (principal); I82.411 Acute embolism and thrombosis of right femoral vein; M79.604 Pain in right leg
CPT/HCPCS: 36415; 73590; 80053; 85025; 93971; 99281; 99283

== ENCOUNTER → 2022-12-29 07:58 | Outpatient (CLI) | payer OTHER, SELFPAY ==
--- NOTE | 2022-12-29 | DI.MG.S_ITS ---
BILATERAL DIGITAL SCREENING MAMMOGRAM 3D/2D WITH CAD: 12/29/2022 CLINICAL: Routine screening. Comparison is made to exams dated: 12/24/2021 mammogram, 12/19/2020 mammogram, 12/13/2019 mammogram, and 12/11/2018 mammogram - [facility]. Both breasts are almost entirely fatty (category a/<25% glandular tissue). Current study was also evaluated with a Computer Aided Detection (CAD) system. No significant masses, calcifications, or other findings are seen in either breast. There has been no significant interval change. IMPRESSION: NEGATIVE There is no mammographic evidence of malignancy. A 1 year screening mammogram is recommended. Based on the Tyrer Cuzick model (a risk assessment model) the patient's lifetime risk is 3.1% and her 10 year risk is 2.5%. According to the ACR, ACS, and NCCN guidelines, an annual breast MRI exam along with mammogram is recommended if the patient's lifetime risk is 20% or greater. This exam was interpreted at Station ID: [id number]. NOTE: For mammograms, a report in lay terms will be sent to the patient. Approximately 15% of breast malignancies will not be visualized mammographically. In the management of a palpable breast mass, a negative mammogram must not discourage biopsy of a clinically suspicious lesion. Electronically Signed By: Maxwell schulz/kan:12/29/2022 10:06:48 letter sent: Normal Exam ACR BI-RADS Category 1: Negative [id number]
== END ==
PROVIDERS: PCP Nurse Practitioner; Referring Provider Nurse Practitioner; Visit Provider Nurse Practitioner
DX: Z12.31 Encounter for screening mammogram for malignant neoplasm of breast (principal)
CPT/HCPCS: 77063; 77067

== ENCOUNTER → 2023-03-16 06:53 | Outpatient (CLI) | payer OTHER, SELFPAY ==
[2023-03-16 07:52] LABS: Add Manual Diff / Slide Review NO; Basophils Absolute Auto 0 /uL (0-100); Basophils Percent Auto 0.7 % (0-2); Eosinophils Absolute Auto 100 /uL (0-450); Eosinophils Percent Auto 1.5 % (2-4); Hemoglobin 11.4 g/dL (12.0-16.0); Lymphocytes Absolute Auto 1500 /uL (1100-4500); Lymphocytes Percent Auto 27.9 % (25-40); Mean Corpuscular HGB Conc 34.7 % (30-36); Mean Corpuscular Hemoglobin 33.6 PG (26-34); Mean Corpuscular Volume 96.7 fL (80-100); Monocytes Absolute Auto 400 /uL (0-900); Neutrophils Absolute Auto 3500 /uL (1500-7000); Neutrophils Percent Auto 62.9 % (50-75); Platelet Count 247 X10^3/uL (150-400); Red Blood Cell Count 3.41 X10^6/uL (4.0-5.2); Red Cell Distribution Width 15.1 % (11.6-14.8); White Blood Cell Count 5.5 X10^3/uL (4.5-11.0)
[2023-03-16 08:00] LABS: Hemoglobin A1C% w Est Avg Glu 6.3 % (4.0-6.0)
[2023-03-16 08:09] LABS: Cholesterol 186 mg/dL (140-199); HDL Cholesterol 44 mg/dL (40-60); LDL Cholesterol Calculated 111 mg/dL (<100); Triglycerides 153 mg/dL (35-150)
[2023-03-16 08:23] LABS: Free T3, Triiodothyronine Free 4.18 pg/mL (2.77-5.27)
[2023-03-16 08:25] LABS: Free T4, Direct Thyroxine 1.26 ng/dL (0.78-2.19)
[2023-03-16 08:38] LABS: Thyroid Stimulating Hormone 2.06 uIU/mL (0.47-4.68)
[2023-03-16 18:41] LABS: Creatinine Urine Random 105.8 mg/dL; Microalbumi Creatinin Ratio Ur 7.5 ug/mg CR (<30); Microalbumin Urine Random 0.8 mg/dL (0-1.6)
== END ==
PROVIDERS: PCP Nurse Practitioner; Referring Provider Nurse Practitioner; Visit Provider Nurse Practitioner
DX: D64.9 Anemia, unspecified (principal); R73.03 Prediabetes; E78.5 Hyperlipidemia, unspecified; I10 Essential (primary) hypertension; Z79.899 Other long term (current) drug therapy
CPT/HCPCS: 36415; 80061; 82043; 82570; 83036; 84439; 84443; 84481; 85025

== ENCOUNTER → 2023-05-25 06:47 | Outpatient (CLI) | payer OTHER, SELFPAY ==
[2023-05-25 07:48] LABS: Add Manual Diff / Slide Review NO; Basophils Absolute Auto 0 /uL (0-100); Basophils Percent Auto 0.6 % (0-2); Eosinophils Absolute Auto 100 /uL (0-450); Eosinophils Percent Auto 1.9 % (2-4); Hematocrit 32.3 % (36-46); Lymphocytes Absolute Auto 1600 /uL (1100-4500); Lymphocytes Percent Auto 32.6 % (25-40); Mean Corpuscular Hemoglobin 33.5 PG (26-34); Mean Corpuscular Volume 98.5 fL (80-100); Monocytes Absolute Auto 400 /uL (0-900); Monocytes Percent Auto 7.6 % (3-14); Neutrophils Absolute Auto 2800 /uL (1500-7000); Neutrophils Percent Auto 57.3 % (50-75); Platelet Count 247 X10^3/uL (150-400); Red Blood Cell Count 3.28 X10^6/uL (4.0-5.2); Red Cell Distribution Width 14.9 % (11.6-14.8); White Blood Cell Count 4.9 X10^3/uL (4.5-11.0)
[2023-05-25 08:18] LABS: HEMOLYSIS < 15 (0-50); Iron 82 ug/dL (37-170)
[2023-05-25 08:29] LABS: Alanine Aminotransferase 17 IU/L (<35); Albumin 4.1 g/dL (3.5-5.0); Albumin Globulin Ratio 1.4 (1.0-2.8); Alkaline Phosphatase 74 U/L (38-126); Aspartate Aminotransferase 25 IU/L (14-36); BUN Creatinine Ratio 20.4 (6-22); Bilirubin Total 0.7 mg/dL (0.2-1.3); Blood Urea Nitrogen 23 mg/dL (7-17); Calcium 9.5 mg/dL (8.4-10.2); Carbon Dioxide 23 mmol/L (22-32); Chloride 105 mmol/L (98-107); Cholesterol 188 mg/dL (140-199); Estimated Glomerular Filt Rate 51 mL/min (>60); Glucose 117 mg/dL (80-110); HDL Cholesterol 37 mg/dL (40-60); HEMOLYSIS < 15 (0-50); LDL Cholesterol Calculated 118 mg/dL (<100); Potassium 4.4 mmol/L (3.4-5.1); Sodium 138 mmol/L (137-145); Total Protein 7.1 g/dL (6.3-8.2); Triglycerides 163 mg/dL (35-150)
[2023-05-25 08:30] LABS: Percent Iron Saturation 26 % (15-50); Total Iron Binding Capacity 315 ug/dL (265-497); Transferrin 256 mg/dL (206-381)
[2023-05-25 08:46] LABS: Free T3, Triiodothyronine Free 3.57 pg/mL (2.77-5.27); Free T4, Direct Thyroxine 1.32 ng/dL (0.78-2.19)
[2023-05-25 08:59] LABS: Thyroid Stimulating Hormone 1.84 uIU/mL (0.47-4.68)
[2023-05-25 09:06] LABS: Ferritin 13 ng/mL (11-264)
[2023-05-25 09:31] LABS: Hemoglobin A1C% w Est Avg Glu 5.9 % (4.0-6.0)
[2023-05-25 16:57] LABS: Creatinine Urine Random 110.6 mg/dL
[2023-05-25 16:59] LABS: Microalbumi Creatinin Ratio Ur 9.9 ug/mg CR (<30); Microalbumin Urine Random 1.1 mg/dL (0-1.6)
== END ==
PROVIDERS: PCP Nurse Practitioner; Referring Provider Nurse Practitioner; Visit Provider Nurse Practitioner
DX: E11.9 Type 2 diabetes mellitus without complications (principal); E78.5 Hyperlipidemia, unspecified; I10 Essential (primary) hypertension; D64.9 Anemia, unspecified; Z79.899 Other long term (current) drug therapy
CPT/HCPCS: 36415; 80053; 80061; 82043; 82570; 82728; 83036; 83540; 83550; 84439; 84443; 84481; 85025

== ENCOUNTER → 2023-06-15 10:04 | Outpatient (CLI) | payer OTHER, SELFPAY ==
[2023-06-15 10:59] LABS: COVID-19 CEPHEID 4-PLEX PCR Negative (Negative); Influenza A - CEPHEID Flu A NEGATIVE (NEGATIVE); Influenza B - CEPHEID Flu B NEGATIVE (NEGATIVE); Respiratory Syncytial Virus Negative (Negative)
== END ==
PROVIDERS: PCP Nurse Practitioner; Visit Provider Physician Assistant Surgical
DX: R52 Pain, unspecified (principal)
CPT/HCPCS: 0241U

== ENCOUNTER → 2023-06-23 06:33 | Outpatient (CLI) | payer OTHER, SELFPAY ==
[2023-06-23 07:42] LABS: Add Manual Diff / Slide Review NO; Basophils Absolute Auto 0 /uL (0-100); Basophils Percent Auto 0.2 % (0-2); Eosinophils Absolute Auto 100 /uL (0-450); Eosinophils Percent Auto 1.6 % (2-4); Hematocrit 31.5 % (36-46); Lymphocytes Absolute Auto 1400 /uL (1100-4500); Lymphocytes Percent Auto 27.8 % (25-40); Mean Corpuscular Hemoglobin 34.2 PG (26-34); Mean Corpuscular Volume 97.9 fL (80-100); Monocytes Absolute Auto 400 /uL (0-900); Monocytes Percent Auto 7.1 % (3-14); Neutrophils Absolute Auto 3300 /uL (1500-7000); Neutrophils Percent Auto 63.3 % (50-75); Platelet Count 293 X10^3/uL (150-400); Red Blood Cell Count 3.22 X10^6/uL (4.0-5.2); Red Cell Distribution Width 14.8 % (11.6-14.8); White Blood Cell Count 5.2 X10^3/uL (4.5-11.0)
[2023-06-23 08:14] LABS: HEMOLYSIS < 15 (0-50); Iron 68 ug/dL (37-170)
[2023-06-23 08:15] LABS: Creatinine Urine Random 71.2 mg/dL
[2023-06-23 08:19] LABS: Microalbumi Creatinin Ratio Ur 8.4 ug/mg CR (<30); Microalbumin Urine Random 0.6 mg/dL (0-1.6)
[2023-06-23 08:26] LABS: Percent Iron Saturation 26 % (15-50); Total Iron Binding Capacity 262 ug/dL (265-497); Transferrin 216 mg/dL (206-381)
[2023-06-23 08:32] LABS: Free T3, Triiodothyronine Free 3.71 pg/mL (2.77-5.27)
[2023-06-23 09:12] LABS: Vitamin B12 < 159 pg/mL (239-931)
[2023-06-23 09:20] LABS: Alanine Aminotransferase 15 IU/L (<35); Albumin Globulin Ratio 1.3 (1.0-2.8); Alkaline Phosphatase 77 U/L (38-126); Aspartate Aminotransferase 21 IU/L (14-36); BUN Creatinine Ratio 21.6 (6-22); Bilirubin Total 0.7 mg/dL (0.2-1.3); Blood Urea Nitrogen 22 mg/dL (7-17); Calcium 9.6 mg/dL (8.4-10.2); Carbon Dioxide 24 mmol/L (22-32); Chloride 105 mmol/L (98-107); Cholesterol 171 mg/dL (140-199); Estimated Glomerular Filt Rate 58 mL/min (>60); Globulin 3.1 g/dL (1.7-4.1); Glucose 112 mg/dL (80-110); HDL Cholesterol 36 mg/dL (40-60); HEMOLYSIS < 15 (0-50); LDL Cholesterol Calculated 104 mg/dL (<100); Potassium 4.4 mmol/L (3.4-5.1); Sodium 139 mmol/L (137-145); Total Protein 7.1 g/dL (6.3-8.2); Triglycerides 155 mg/dL (35-150)
== END ==
LOC: LAB 06:34
PROVIDERS: PCP Nurse Practitioner; Referring Provider Nurse Practitioner; Visit Provider Nurse Practitioner
DX: E11.9 Type 2 diabetes mellitus without complications (principal); Z79.01 Long term (current) use of anticoagulants; D64.9 Anemia, unspecified; I10 Essential (primary) hypertension; R73.09 Other abnormal glucose; R53.83 Other fatigue
CPT/HCPCS: 36415; 80053; 80061; 82043; 82570; 82607; 83036; 83540; 83550; 84439; 84443; 84481; 85025

== ENCOUNTER → 2023-09-06 06:30 | Outpatient (CLI) | payer OTHER, SELFPAY ==
[2023-09-06 08:25] LABS: Add Manual Diff / Slide Review NO; Basophils Absolute Auto 0 /uL (0-100); Basophils Percent Auto 0.8 % (0-2); Eosinophils Absolute Auto 100 /uL (0-450); Eosinophils Percent Auto 1.3 % (2-4); Hematocrit 34.5 % (36-46); Hemoglobin 11.8 g/dL (12.0-16.0); Lymphocytes Absolute Auto 1500 /uL (1100-4500); Lymphocytes Percent Auto 32.8 % (25-40); Mean Corpuscular HGB Conc 34.3 % (30-36); Mean Corpuscular Hemoglobin 31.2 PG (26-34); Monocytes Absolute Auto 400 /uL (0-900); Monocytes Percent Auto 7.8 % (3-14); Neutrophils Absolute Auto 2700 /uL (1500-7000); Neutrophils Percent Auto 57.3 % (50-75); Platelet Count 243 X10^3/uL (150-400); Red Blood Cell Count 3.79 X10^6/uL (4.0-5.2); Red Cell Distribution Width 13.1 % (11.6-14.8); White Blood Cell Count 4.6 X10^3/uL (4.5-11.0)
[2023-09-06 08:27] LABS: Hemoglobin A1C% w Est Avg Glu 6.2 % (4.0-6.0)
[2023-09-06 08:48] LABS: Alanine Aminotransferase 17 IU/L (<35); Albumin 4.3 g/dL (3.5-5.0); Albumin Globulin Ratio 1.7 (1.0-2.8); Alkaline Phosphatase 73 U/L (38-126); Aspartate Aminotransferase 26 IU/L (14-36); BUN Creatinine Ratio 21.9 (6-22); Bilirubin Total 0.7 mg/dL (0.2-1.3); Blood Urea Nitrogen 23 mg/dL (7-17); Carbon Dioxide 27 mmol/L (22-32); Chloride 103 mmol/L (98-107); Cholesterol 182 mg/dL (140-199); Estimated Glomerular Filt Rate 56 mL/min (>60); Globulin 2.5 g/dL (1.7-4.1); Glucose 121 mg/dL (80-110); HDL Cholesterol 40 mg/dL (40-60); HEMOLYSIS < 15 (0-50); Iron 79 ug/dL (37-170); LDL Cholesterol Calculated 115 mg/dL (<100); Sodium 137 mmol/L (137-145); Total Protein 6.8 g/dL (6.3-8.2); Triglycerides 136 mg/dL (35-150)
[2023-09-06 08:58] LABS: Percent Iron Saturation 26 % (15-50); Total Iron Binding Capacity 307 ug/dL (265-497); Transferrin 243 mg/dL (206-381)
[2023-09-06 09:31] LABS: Vitamin B12 < 159 pg/mL (239-931)
== END ==
PROVIDERS: PCP Nurse Practitioner; Referring Provider Nurse Practitioner; Visit Provider Nurse Practitioner
DX: D64.9 Anemia, unspecified (principal); R73.09 Other abnormal glucose; E11.9 Type 2 diabetes mellitus without complications; I10 Essential (primary) hypertension; E78.5 Hyperlipidemia, unspecified; E66.01 Morbid (severe) obesity due to excess calories; Z68.41 Body mass index [BMI] 40.0-44.9, adult
CPT/HCPCS: 36415; 80053; 80061; 82607; 83036; 83540; 83550; 85025

== ENCOUNTER → 2024-01-08 12:52 | Outpatient (CLI) | payer OTHER, SELFPAY ==
[2024-01-10 13:10] LABS: Interpretation Negative (Negative)
== END ==
PROVIDERS: PCP Nurse Practitioner; Referring Provider Physician Assistant; Visit Provider Physician Assistant
DX: R10.13 Epigastric pain (principal)
CPT/HCPCS: 83013

== ENCOUNTER → 2024-01-11 12:40 | Outpatient (CLI) | payer OTHER, SELFPAY ==
--- NOTE | 2024-01-11 12:41 | DI.MG.S_ITS ---
BILATERAL DIGITAL SCREENING MAMMOGRAM 3D/2D WITH CAD: 01/11/2024 CLINICAL: Routine screening. Comparison is made to exams dated: 12/29/2022 mammogram, 12/24/2021 mammogram, and 12/19/2020 mammogram - [facility]. There are scattered areas of fibroglandular density (category b / 25%-50% glandular tissue). Current study was also evaluated with a Computer Aided Detection (CAD) system. No significant masses, calcifications, or other findings are seen in either breast. There has been no significant interval change. IMPRESSION: NEGATIVE There is no mammographic evidence of malignancy. A 1 year screening mammogram is recommended. Based on the Tyrer Cuzick model (a risk assessment model) the patient's lifetime risk is 4.4% and her 10 year risk is 3.9%. According to the ACR, ACS, and NCCN guidelines, an annual breast MRI exam along with mammogram is recommended if the patient's lifetime risk is 20% or greater. This exam was interpreted at Station ID: [id number]. NOTE: For mammograms, a report in lay terms will be sent to the patient. Approximately 15% of breast malignancies will not be visualized mammographically. In the management of a palpable breast mass, a negative mammogram must not discourage biopsy of a clinically suspicious lesion. Electronically Signed By: Maxwell schulz/kan:01/11/2024 16:14:24 letter sent: Normal Exam ACR BI-RADS Category 1: Negative
== END ==
PROVIDERS: PCP Family Medicine; Referring Provider Family Medicine; Visit Provider Family Medicine
DX: Z12.31 Encounter for screening mammogram for malignant neoplasm of breast (principal)
CPT/HCPCS: 77063; 77067

== ENCOUNTER → 2024-02-23 06:31 | Outpatient (CLI) | payer OTHER, SELFPAY ==
[2024-02-23 07:55] LABS: Hematocrit 36.2 % (36-46); Hemoglobin 12.4 g/dL (12.0-16.0); Mean Corpuscular HGB Conc 34.1 % (30-36); Mean Corpuscular Hemoglobin 30.8 PG (26-34); Mean Corpuscular Volume 90.3 fL (80-100); Platelet Count 264 X10^3/uL (150-400); Red Blood Cell Count 4.01 X10^6/uL (4.0-5.2); Red Cell Distribution Width 13.6 % (11.6-14.8); White Blood Cell Count 4.8 X10^3/uL (4.5-11.0)
[2024-02-23 08:04] LABS: Hemoglobin A1C% w Est Avg Glu 6.4 % (4.0-6.0)
[2024-02-23 08:17] LABS: Alanine Aminotransferase 20 IU/L (<35); Albumin 4.4 g/dL (3.5-5.0); Albumin Globulin Ratio 1.7 (1.0-2.8); Alkaline Phosphatase 71 U/L (38-126); Aspartate Aminotransferase 26 IU/L (14-36); BUN Creatinine Ratio 21.2 (6-22); Bilirubin Total 0.6 mg/dL (0.2-1.3); Blood Urea Nitrogen 21 mg/dL (7-17); Calcium 9.6 mg/dL (8.4-10.2); Carbon Dioxide 22 mmol/L (22-32); Chloride 103 mmol/L (98-107); Cholesterol 193 mg/dL (140-199); Estimated Glomerular Filt Rate 60 mL/min (>60); Globulin 2.6 g/dL (1.7-4.1); Glucose 116 mg/dL (80-110); HDL Cholesterol 52 mg/dL (40-60); HEMOLYSIS < 15 (0-50); LDL Cholesterol Calculated 119 mg/dL (<100); Potassium 4.2 mmol/L (3.4-5.1); Sodium 136 mmol/L (137-145); Triglycerides 108 mg/dL (35-150)
[2024-02-23 08:20] LABS: HEMOLYSIS < 15 (0-50); Iron 80 ug/dL (37-170)
[2024-02-23 08:32] LABS: Percent Iron Saturation 29 % (15-50); Total Iron Binding Capacity 272 ug/dL (265-497); Transferrin 247 mg/dL (206-381)
[2024-02-23 08:37] LABS: Free T3, Triiodothyronine Free 3.24 pg/mL (2.77-5.27); Free T4, Direct Thyroxine 1.03 ng/dL (0.78-2.19)
[2024-02-23 08:51] LABS: Thyroid Stimulating Hormone 1.36 uIU/mL (0.47-4.68)
[2024-02-23 14:22] LABS: Creatinine Urine Random 88.53 mg/dL
[2024-02-23 14:26] LABS: Microalbumin Urine Random < 0.6 mg/dL (0-1.6)
== END ==
PROVIDERS: PCP Family Medicine; Referring Provider Nurse Practitioner; Visit Provider Nurse Practitioner
DX: E11.9 Type 2 diabetes mellitus without complications (principal); Z79.01 Long term (current) use of anticoagulants; D50.9 Iron deficiency anemia, unspecified; E78.41 Elevated Lipoprotein(a); I10 Essential (primary) hypertension; D51.9 Vitamin B12 deficiency anemia, unspecified; N39.46 Mixed incontinence
CPT/HCPCS: 36415; 80053; 80061; 82043; 82570; 83036; 83540; 83550; 84439; 84443; 84481; 85027

== ENCOUNTER → 2024-06-15 07:30 | Outpatient (CLI) | payer OTHER, SELFPAY ==
[2024-06-15 08:56] LABS: Hematocrit 36.1 % (36-46); Hemoglobin 12.3 g/dL (12.0-16.0); Mean Corpuscular Hemoglobin 31.1 PG (26-34); Mean Corpuscular Volume 91.4 fL (80-100); Platelet Count 256 X10^3/uL (150-400); Red Blood Cell Count 3.95 X10^6/uL (4.0-5.2); Red Cell Distribution Width 14.1 % (11.6-14.8); White Blood Cell Count 4.9 X10^3/uL (4.5-11.0)
[2024-06-15 09:13] LABS: BUN Creatinine Ratio 22.4 (6-22); Blood Urea Nitrogen 24 mg/dL (7-17); Calcium 9.5 mg/dL (8.4-10.2); Carbon Dioxide 22 mmol/L (22-32); Chloride 104 mmol/L (98-107); Cholesterol 195 mg/dL (140-199); Estimated Glomerular Filt Rate 55 mL/min (>60); Glucose 103 mg/dL (80-110); HDL Cholesterol 48 mg/dL (40-60); HEMOLYSIS < 15 (0-50); LDL Cholesterol Calculated 117 mg/dL (<100); Potassium 4.5 mmol/L (3.4-5.1); Sodium 137 mmol/L (137-145); Triglycerides 151 mg/dL (35-150)
== END ==
PROVIDERS: PCP Family Medicine; Referring Provider Internal Medicine Cardiovascular Disease; Visit Provider Internal Medicine Cardiovascular Disease
DX: I10 Essential (primary) hypertension (principal)
CPT/HCPCS: 36415; 80048; 80061; 85027

== ENCOUNTER → 2024-08-13 06:08 | Outpatient (CLI) | payer OTHER, SELFPAY | PROVIDERS: PCP Family Medicine; Referring Provider Family Medicine; Visit Provider Family Medicine | DX: E11.9 Type 2 diabetes mellitus without complications (principal) | CPT/HCPCS: 36415; 83036 ==

== ENCOUNTER → 2024-08-16 09:21 | Outpatient (CLI) | payer OTHER, SELFPAY ==
--- NOTE | 2024-08-16 09:24 | DI.RAD.S_ITS ---
PROCEDURE: XR T AND L SPINE 2 TO 3 VIEWS INDICATIONS: r/o acute injury without known trauma TECHNIQUE: 2 views acquired of the thoracolumbar spine. COMPARISON: [facility], XR LUMBAR SPINE 2 OR 3 VIEWS, 12/21/2021, 8:32. FINDINGS: Bones: Mild distal spinal anatomy with suspected small rudimentary ribs at the T12 level. Remote prior L5 vertebral body fracture is not as well seen on the current exam due to overlapping osseous structures, but there does not appear to be progressive loss of vertebral body height. No new compression fracture is identified. Included ribs are grossly intact. Mild grade 1 anterolisthesis at L3-4 and L4-5 secondary to facet hypertrophy. Grade 1 anterolisthesis at T12-L1. Multilevel disc space narrowing and degenerative endplate changes. Multilevel facet hypertrophy. Soft tissues: No suspicious soft tissue calcifications. IMPRESSION: 1. No acute osseous abnormality. If symptoms persist or if there is continued clinical concern, cross-sectional imaging such as MRI or CT may be helpful for further evaluation. 2. Previously seen L5 vertebral body fracture is not as well visualized on the current exam, but there does not appear to be progressive loss of vertebral body height. 3. Moderate multilevel spondylosis and degenerative spondylolisthesis. Approved by: Drake Andrade M.D. on 08/16/2024 at 11:37
== END ==
PROVIDERS: PCP Family Medicine; Referring Provider Nurse Practitioner Family; Visit Provider Nurse Practitioner Family
DX: M47.816 Spondylosis without myelopathy or radiculopathy, lumbar region (principal); M43.16 Spondylolisthesis, lumbar region; M54.9 Dorsalgia, unspecified
CPT/HCPCS: 72082

== ENCOUNTER → 2024-10-31 13:48 | Outpatient (CLI) | payer OTHER, SELFPAY ==
--- NOTE | 2024-10-31 17:03 | DIET.OUTPTC ---
Dietary Outpatient Consult Consult Date:10/31/24 Assessment:?74 y F referred to dietitian for T2DM and BMI 40. Pt with well-controlled DM, but struggling with recipe ideas for dinner. GI symptoms: denies any symptoms, regular BMs Diet Recall: B-toast with small smear of stick butter with meds, later has boiled eggs L-sandwich with deli meat, subway sandwich 2x/wk with small bag of chips snacks on 1c fruit or more D-vegetable salad with crockpot meals (beef) hamburgers/hotdogs, chili, steak with tomatoes and rice - cooks for roommate Fluids: 30oz with ice in it 5x/d, 1/2 c coffee in morning 02/11/2411:29 Height 5 ft 9 in Weight 204 lb BMI 30.1 Activity:3x/wk for 1 hour does virtual exercises - resistance and cardio Pertinent Labs:6.0 A1c%, 117 LDL Nutrition Diagnosis:? Food and nutrition related knowledge deficit r/t needing help with meal planning aeb reports wanting to review different dinner ideas Interventions:? Discussed and provided appropriate resources on the following: -Building a balanced meals in line with plate method/Mediterranean/DASH style eating -Resources for meal ideas -Examples of meals and meal building -Saturated fat in protein sources, label reading for saturated fat -Physical activity Goals: -Trying new recipe 1-2x/wk, with half the plate fruit/vegs -Planning weekly dinners out -Choosing low saturated fat beef (handout provided) Monitoring/Evaluations:? F/u PRN Electronically Signed by: Serena Denton Clinical Dietitian [address] [id number]
== END ==
PROVIDERS: PCP Family Medicine; Referring Provider Family Medicine; Visit Provider Family Medicine
DX: E11.9 Type 2 diabetes mellitus without complications (principal); Z71.3 Dietary counseling and surveillance; Z68.41 Body mass index [BMI] 40.0-44.9, adult
CPT/HCPCS: 97802

== ENCOUNTER → 2025-01-11 07:34 | Outpatient (CLI) | payer OTHER, SELFPAY ==
[2025-01-11 10:39] LABS: Hemoglobin A1C% w Est Avg Glu 6.3 % (4.0-6.0)
== END ==
PROVIDERS: PCP Family Medicine; Referring Provider Family Medicine; Visit Provider Family Medicine
DX: E11.9 Type 2 diabetes mellitus without complications (principal)
CPT/HCPCS: 36415; 83036

== ENCOUNTER → 2025-01-16 07:33 | Outpatient (CLI) | payer OTHER, SELFPAY ==
--- NOTE | 2025-01-16 07:34 | DI.MG.S_ITS ---
MM screening mammo BI: 01/16/2025. BI-RADS: 1 CLINICAL: 74-year old female for bilateral screening mammogram. Tyrer-Cuzick lifetime risk of 4.1%. No personal or first-degree family history of breast cancer. The patient is status-post reduction mammoplasty. PRIOR EXAMS 01/11/2024, 12/29/2022, 12/24/2021, 12/19/2020. MAMMOGRAPHY TECHNIQUE: 2D and 3D (tomosynthesis) digital mammographic views obtained, with additional images as needed for full coverage. Current study was also evaluated with a Computer Aided Detection (CAD) system. DENSITY B. There are scattered areas of fibroglandular density. MAMMOGRAPHY FINDINGS Bilateral: No suspicious mass, asymmetry, microcalcification, or other abnormality seen. IMPRESSION: * No evidence of malignancy. RECOMMENDATIONS Bilateral * Annual screening mammography. OVERALL ASSESSMENT CATEGORY BI-RADS-1: Negative. The [employer] recommends annual screening mammography beginning at age 40 for women with average risk of breast cancer. ELECTRONICALLY SIGNED: Jaclyn White M.D. on 01/16/2025 at 04:35:23 PM PT Interpreting Station ID: [id number]
== END ==
LOC: MAMMO 07:34
PROVIDERS: PCP Family Medicine; Referring Provider Family Medicine; Visit Provider Family Medicine
DX: Z12.31 Encounter for screening mammogram for malignant neoplasm of breast (principal)
CPT/HCPCS: 77063; 77067